=== PATIENT | female | born 1965 | race Caucasian/White ===

== ENCOUNTER → 2017-10-11 | Outpatient (CLI) | payer OTHER, MEDICAID ==
[~2017-10-11] MED LIST: ACTOS 30 MG TAB30 M1 PO; ADULT LOW DOSE81 MG PO; ALBUTEROL2.5 MG/31 INH; ASPIR 8181 MG PO; CELEXA40 MG PO; CLONAZEPAM 1 MG1 M1 PO; CRESTOR20 MG PO; DIFLUCAN150 M1 PO; DIOVAN HCT 1601 EAC1 PO; FLEXERIL PO; FUROSEMIDE 40 M40 M1 PO; HYDROCODON-ACE1 EAC5 PO; HYDROCODONE-AP1 EAC2 PO; LASIX 40 MG TAB40 MG GT; LEVOTHROID PO; METFORMIN 500500 MG PO; MOBIC15 MG PO; NORCO 10-325 T1 EACH PO; NORCO 7.5-3251 EACH PO; NORVASC10 MG PO; OMEPRAZOLE 20 M20 M1 PO; PHENERGAN 25 MG25 M1 PO; PIOGLITAZONE15 MG; PRILOSEC 20 MG20 MG PO; SYNTHROID300 MCG PO; VALSARTAN-HCTZ1 EAC2 PO; VENTOLIN HFA 1818 GM INH; ZOCOR40 MG PO; ZOVIRAX5 GM TOP
--- NOTE | 2017-10-17 14:16 | PAINCON ---
[address] [address] PAIN MANAGEMENT CONSULTATION Name: TAWNYETTA [facility] [id number] Admission: 10/11/17 Attend Phys: Heidi Harper MD Discharge: Date of : 63 Report #: [id number] THIS REPORT FOR: //name// CC: Heidi Amezquita DATE OF SERVICE: 10/11/2017 CHIEF COMPLAINT: Chronic pain. HISTORY OF PRESENT ILLNESS: The patient is a 57-year-old female who has been referred to the pain clinic because of chronic pain involving her feet bilaterally affected, back, hips, knees, and ankles. The patient has been having pain and found things problematic since 2006. She is experiencing a constant burning pain in her feet. States that Dr. Amezquita has been providing her medications until at this point. The patient states that her physician is no longer providing pain management. States that she has been taking Harmony 10 mg 1 p.o. every 4 hours for quite some time. Notes that her pain is worse with activity, cold temperatures, walking, sitting, standing, and lifting. Describes her pain in other areas, particularly in the feet as burning and cramping. She has been experiencing shooting, aching pain, gnawing pain, sharp, and stabbing pains. Notes that her pain improves when she lies down as well as with use of her medications. Pain is worse when she is active. Rates her pain as an 8/10 on a daily basis. ALLERGIES: No known drug allergies. CURRENT MEDICATIONS: Zovirax cream topical, albuterol 2.5 mg inhalation, ____ 2 puffs q. 4 hours, Norvasc 10 mg daily, aspirin 81 mg chewable, Celexa 40 mg, clonazepam 1 mg, Flexeril 10 mg for spasms, fluconazole 150 mg, Lasix 40 mg, hydrocodone 10/325 one p.o. 4-6 hours p.r.n. pain, levothyroxine 300 mcg, meloxicam 15 mg, omeprazole 20 mg, Actos 30 mg, Phenergan 25 mg, Crestor 20 mg, and valsartan/hydrochlorothiazide 160/25. PAST MEDICAL HISTORY: Diabetes, hypertension, asthma, colon problems, stomach problems, emotional problems, joint disease/arthritis, and thyroid disease. PAST SURGICAL HISTORY: Gallbladder surgery, cholecystectomy in 1993, hysterectomy complete in 1998, rectal surgery in 1994. SOCIAL HISTORY: She is disabled and on social security, has not worked since 2006. REVIEW OF SYSTEMS: Questionnaire, night fever/sweats, fatigue/weakness, headaches, wears glasses, shortness of breath with walking, swelling of feet and ankles, asthma, frequent diarrhea, painful bowel movements, abdominal pain, [place] [address] PAIN MANAGEMENT CONSULTATION Name: ETTA HECTOR Vangie Room: [facility]#: [id number] Admission: 10/11/17 Attend Phys: Heidi Harper MD Discharge: Date of : 63 Report #: [id number] frequent urination, awakens at night to urinate, incontinence, joint pain, joint stiffness, weakness of muscles, muscle pain with cramps, back pain, difficulty walking, frequent recurring headaches, lightheadedness, numbness and tingling sensation, nervousness, and depression. PAIN CLINIC ASSESSMENT: 1. History of osteoarthritis involving her hips, knees, and low back area for a number of years. 2. Height 5 feet 4 inches, weight 375 pounds, BMI is 64. 3. Blood pressure 155/75, heart rate 95, respiratory rate 16, room air saturation 93%, and temperature 98.3. 4. Pain score 8/10. 5. Fall. The patient has not fallen in the last 3 months. 6. Blood thinner. The patient is not on a blood thinning medication. 7. Hypertension. The patient is being treated for hypertension. 8. Opioid therapy greater than 6 weeks. The patient is on an opioid regimen. 9. Risk assessment tool. 10. Functional assessment tool. 11. Recreational drug use. The patient denies use of recreational drugs. 12. Tobacco: The patient denies use of tobacco. 13. Alcohol: The patient denies use of alcoholic beverages. PHYSICAL EXAMINATION: GENERAL: The patient is a well-developed white female, appears her stated age. She is alert and oriented x 3. Affect is appropriate. Speech is fluent. HEENT: Normocephalic, atraumatic. Extraocular eye muscles intact. Sclerae nonicteric. Hearing is within normal limits. Mucous membranes are moist. NECK: Without adenopathy or JVD. Good range of motion. CHEST: Clear to auscultation, but difficult to assess secondary to the patient's body habitus. ABDOMEN: Protuberant. EXTREMITIES: Upper extremity muscle strength is judged to be 5/5 for the major muscle groups, +1 for the biceps bilaterally. The patient complains of low back pain, hip pain, knee pain with signs of peripheral neuropathy in her feet. IMPRESSION: 1. Chronic back pain, hip, knee, and ankle pain as well as pain in the feet. 2. Diabetes with neuropathy. 3. Hypertension. 4. Asthma. 5. Colon problems. 6. Stomach problems. 7. Emotional problems. 8. Joint disease/arthritis. 9. [place] [address] PAIN MANAGEMENT CONSULTATION Name: ETTA HECTOR Vangie Room: [facility]#: [id number] Admission: 10/11/17 Attend Phys: Heidi Harper MD Discharge: Date of : 63 Report #: [id number] RECOMMENDATIONS: We discussed treatment options with the patient. We discussed the problems with opioid medications. We went over the CDC's new rules for opioid use. We explained to the patient the limitations of opioid use. Possible complications which could include dependence as well as lessen effects as a result of tolerance. We will provide the patient with 10 mg 1 p.o. total 5 tablets per day. We explained to the patient, she should get her medications from only one source. She states that she would follow the rules. A script for hydrocodone 10 mg 1 p.o. q. 4-6h, total 150 tablets have been dispensed. The patient will call us if she has any problems with her medications. We would like to thank you for letting us participate in her care. We hope she continues to improve. <ELECTRONICALLY SIGNED> By: Heidi Harper MD 10/17/17 1416 [id number]. Oswald Harper MD /nt
== END ==
LOC: M.PC 03:18
DX: M54.5 Low back pain (principal); G89.29 Other chronic pain; E11.40 Type 2 diabetes mellitus with diabetic neuropathy, unspecified; I10 Essential (primary) hypertension; J45.909 Unspecified asthma, uncomplicated; E07.9 Disorder of thyroid, unspecified; F98.9 Unspecified behavioral and emotional disorders with onset usually occurring in childhood and adolescence

== ENCOUNTER → 2017-11-08 | Outpatient (CLI) | payer OTHER, MEDICAID ==
--- NOTE | 2017-11-14 16:41 | PAINCON ---
[address] [address] PAIN MANAGEMENT CONSULTATION Name: ETTA HECTOR [facility] [id number] Admission: 11/08/17 Attend Phys: Heidi Harper MD Discharge: Date of : 63 Report #: [id number] THIS REPORT FOR: //name// CC: Heidi Amezquita MD DATE OF SERVICE: 11/08/2017 PRIMARY CARE PHYSICIAN: Jt Amezquita MD FOLLOWUP COMPLAINT: Here for medication renewal. FOLLOWUP HISTORY: The patient is a 52-year-old female who has been followed in the pain clinic because of chronic pain involving her feet. She has pain in her back, hips, knees and ankles. The patient has been having pain and treated since 2006. Notes that her pain continues to be problematic. Has burning in her feet. She has seen Dr. Amezquita who had been providing her medications. She has been referred to the pain clinic. She was given her medications last month. She returns today indicating that the medications are working reasonably well. She has had no complications. She has been taking the medication as prescribed. Feels that overall things are going reasonably well and that she is at baseline. Rates her pain as an 8/10, oftentimes 7/10. Does have some arthritic changes secondary to osteoarthritis involving her knees. ALLERGIES: No known drug allergies. CURRENT MEDICATIONS: Zovirax cream topical, albuterol 2.5 mg inhalation 2 puffs q.4 hours, Norvasc 10 mg daily, aspirin 81 mg, Celexa 40 mg, clonidine 1 mg, Flexeril 10 mg for spasms, fluconazole 150 mg, Lasix 40 mg, hydrocodone 10/325 one p.o. 4-6 hours p.r.n. pain, levothyroxine 300 mcg, meloxicam 15 mg, omeprazole 20 mg, Actos 30 mg, Phenergan 25 mg, Crestor 20 mg, valsartan/hydrochlorothiazide 160/25. PAIN CLINIC ASSESSMENT: 1. History of osteoarthritis. The patient has osteoarthritic changes in her knees as well as in her hips per her report. 2. Height 5 feet 4 inches, weight 373 pounds, BMI is 64. 3. Vitals: Blood pressure 149/82, heart rate 79, respiratory rate 16, room air saturation 93%, temperature 98.1. 4. Pain score 8/10. 5. Fall risk. The patient has not fallen in the last 3 months. She does walk with a cane. 6. Blood thinner. The patient is on a blood thinning medication. 7. Hypertension. The patient is being treated for hypertension. 8. Opioid medications greater than 6 weeks[place] [address] PAIN MANAGEMENT CONSULTATION Name: ETTA HECTOR Room: [facility]#: [id number] Admission: 11/08/17 Attend Phys: Heidi Harper MD Discharge: Date of : 63 Report #: [id number] medications from one source, the pain clinic. 9. Risk assessment tool. 10. Functional assessment tool. 11. Recreational drug use: The patient denies use of recreational drugs. 12. Tobacco: The patient denies use of tobacco. 13. Alcohol: The patient denies use of alcoholic beverages. PHYSICAL EXAMINATION: GENERAL: The patient is a well-developed, well-nourished, white female. Appears her stated age. She is alert and oriented x 3. Affect is appropriate. Speech is fluent. She is morbidly obese. HEENT: Normocephalic, atraumatic. Extraocular eye muscles intact. Sclerae nonicteric. Hearing is within normal limits. Mucous membranes are moist. NECK: Without adenopathy, JVD. Good range of motion. CHEST: Clear to auscultation, difficult to assess secondary to the patient's body habitus. ABDOMEN: Protuberant. MUSCULOSKELETAL: Upper extremity muscle strength is judged to be 5/5 for the major muscle groups with symmetry. The patient without significant kyphosis, scoliosis or lordosis. She does complain of pain in the low back area as well as in her hips and knees. The patient complains of peripheral neuropathy-type symptoms, burning dysesthesias in her feet. IMPRESSION: 1. Chronic pain involving the back, hips, knees, ankles as well as down the feet. 2. Diabetes with neuropathy. 3. Hypertension. 4. Asthma. 5. Colon problems. 6. Stomach problems. 7. Emotional problems. 8. Joint disease/arthritis. 9. Thyroid disease. RECOMMENDATIONS: We discussed treatment options with the patient. She feels that her medications are efficacious. She feels that with these medications, she is able to be more productive. She has taken the medication as prescribed. She is aware that opioid medications can lead to addiction. Notes that these medications over time can become less effective secondary to the patient developing tolerance. She would like to have her medications renewed. A script [address] [address] PAIN MANAGEMENT CONSULTATION Name: ETTA HECTOR Room: [facility]#: [id number] Admission: 11/08/17 Attend Phys: Heidi Harper MD Discharge: Date of : 63 Report #: [id number] for her medications have been rewritten. Hydrocodone 150 tablets have been provided to the patient. <ELECTRONICALLY SIGNED> By: Heidi Harper MD 11/14/17 1641 [id number] [id number] Harper MD /[facility]
== END ==
LOC: M.PC 03:21
DX: M54.5 Low back pain (principal); M25.552 Pain in left hip; M25.551 Pain in right hip; M25.561 Pain in right knee; M25.562 Pain in left knee; M25.572 Pain in left ankle and joints of left foot; M25.571 Pain in right ankle and joints of right foot; E11.40 Type 2 diabetes mellitus with diabetic neuropathy, unspecified; I10 Essential (primary) hypertension; J45.909 Unspecified asthma, uncomplicated; M19.90 Unspecified osteoarthritis, unspecified site; E07.9 Disorder of thyroid, unspecified; Z79.899 Other long term (current) drug therapy

== ENCOUNTER → 2017-12-06 | Outpatient (CLI) | payer OTHER, MEDICAID ==
--- NOTE | 2017-12-31 10:00 | PAINCON ---
[address] [address] PAIN MANAGEMENT CONSULTATION Name: TAWNYETTA Room: [facility] Karri#: [id number] Admission: 12/06/17 Attend Phys: Heidi Harper MD Discharge: Date of : 63 Report #: [id number] THIS REPORT FOR: //name// CC: Heidi Amezquita DATE OF SERVICE: 12/06/2017 CHIEF COMPLAINT: "Pain all over." FOLLOWUP HISTORY: The patient is a 52-year-old female who has been seen in the Pain Clinic because of chronic pain. She has pain involving her back, feet, ankles, hips. She notes that the pain is worse with activities of daily living. She notes that things such as walking, sitting, standing, climbing stairs can be problematic. She feels that her medications are helpful. She has had no complication from the meloxicam medication. She does not have any problems with GI complaints. The patient finds that the hydrocodone medication 10 mg can be helpful. She also finds that the muscle relaxant medications are helpful. As you recall, she has had pain and discomfort, which has been emanating for quite some time. She has had the problem since 2006. The patient states that she keeps her medications in a guarded area. She is aware of the possible problems with opioid medications. She has seen this on the news and in the media. She is aware that use of opioid medications can be addictive. They can be less effective over a period of time secondary to tolerance. She continues to have pain and discomfort, which is quite problematic involving her knees. ALLERGIES: No known drug allergies. CURRENT MEDICATIONS: Zovirax cream topical, albuterol 2.5 mg two puffs q. four hours, Norvasc 10 mg, aspirin 81 mg, Celexa 40 mg, clonidine 1 mg, Flexeril 10 mg for spasms, fluconazole 150 mg, Lasix 40 mg, hydrocodone 10/325s q. 4-6 hours p.r.n., levothyroxine 300 mcg, meloxicam 15 mg, omeprazole 20 mg, Actos 30 mg, Phenergan 25 mg, Crestor 20 mg, valsartan/hydrochlorothiazide 160/25. PAIN CLINIC ASSESSMENT/PQRS: 1. History of osteoarthritis: The patient has arthritic changes in her knees as well as in her hips per her report. 2. Height 5 feet 4 inches, weight 371 pounds, BMI is 63. 3. Vital signs: Blood pressure 146/82, heart rate 92, respiratory rate 16, room air saturation 92%, temperature 98.2. 4. Pain score: 8/10. 5. Fall risk: The patient has not fallen in the last 3 months. She does ambulate with use of her cane. 6. Blood thinner: The patient is not on a blood thinning medication. 7. Hypertension: The patient is being treated for hypertension. 8. Opioid therapy greater than 6 weeks: The patient [place] [address] PAIN MANAGEMENT CONSULTATION Name: ETTA HECTOR Room: [facility]#: [id number] Admission: 12/06/17 Attend Phys: Heidi Harper MD Discharge: Date of : 63 Report #: [id number] from the Pain Clinic, from 1 source. 9. Risk assessment tool. 10. Functional assessment tool. 11. Tobacco: The patient denies use of tobacco. 12. Alcohol: The patient denies use of alcoholic beverages. PHYSICAL EXAMINATION: GENERAL: The patient is a well-developed, well-nourished white female. She is morbidly obese. Her affect is appropriate. Speech is fluent. HEENT: Normocephalic, atraumatic. Extraocular eye muscles are intact. Sclerae are nonicteric. Mucous membranes are moist. Hearing is within normal limits. NECK: Without adenopathy or JVD. Good range of motion. CHEST: Clear to auscultation, without rhonchi or rales. Somewhat difficult to hear the patient's lungs given her body habitus. ABDOMEN: Protuberant, nonpainful. MUSCULOSKELETAL: Upper extremity muscle strength is judged to be 5/5 for the major muscle groups. The patient is without significant kyphosis, scoliosis, or lordosis. She does complain of pain in low back area. She has pain in her hips as well as her knees. She also complains of peripheral neuropathy type pains. She has some burning in her feet. IMPRESSION: 1. Chronic back pain, hip pain, knee pain, ankle pain down to the feet. 2. Diabetes with peripheral neuropathy symptomatology in her feet. 3. Hypertension. 4. Asthma. 5. Colon problem. 6. Stomach problem. 7. Emotional problem. 8. Joint disease. 9. Arthritis. 10. Chronic pain treatment with complex medical management. RECOMMENDATIONS: We discussed treatment options with the patient. At this juncture, we will continue with her current medical management. She states that she is taking her medication as prescribed. She does not have any problems with the medication. She feels that they enable her to engage in activities of daily living; she would not be able to without their use. She has had no complications with her thinking. She is thinking clearly. She has been given a script for hydrocodone 150 mg one p.o. q. 4-6 hours for pain. She will follow [place] [address] PAIN MANAGEMENT CONSULTATION Name: ETTA HECTOR Room: [facility]#: [id number] Admission: 12/06/17 Attend Phys: Heidi Harper MD Discharge: Date of : 63 Report #: [id number] We would like to thank you for letting us participate in her care. We hope she continues to improve. <ELECTRONICALLY SIGNED> By: Heidi Harper MD 12/31/17 1000 [id number]. Oswald Harper MD /nt
== END ==
LOC: M.PC 01:45
DX: M54.5 Low back pain (principal); M25.559 Pain in unspecified hip; M25.569 Pain in unspecified knee; M25.579 Pain in unspecified ankle and joints of unspecified foot; I10 Essential (primary) hypertension; E11.42 Type 2 diabetes mellitus with diabetic polyneuropathy; M19.90 Unspecified osteoarthritis, unspecified site; G89.29 Other chronic pain; J45.909 Unspecified asthma, uncomplicated; M25.9 Joint disorder, unspecified; Z79.899 Other long term (current) drug therapy

== ENCOUNTER → 2018-01-03 | Outpatient (CLI) | payer OTHER, MEDICAID ==
--- NOTE | 2018-01-30 16:08 | PAINCON ---
[address] [address] PAIN MANAGEMENT CONSULTATION Name: TAWNYETTA Vangie [facility] [id number] Admission: 01/03/18 Attend Phys: Heidi Harper MD Discharge: Date of : 63 Report #: [id number] THIS REPORT FOR: //name// CC: Heidi Amezquita MD DATE OF SERVICE: 01/03/2018 CHIEF COMPLAINT: Pain back, feet, hips, ankles. The patient states she has osteoarthritis. FOLLOWUP HISTORY: The patient is a 52-year-old female who has been followed in the pain clinic because of multiple areas of pain and discomfort. Has pain involving her back, feet, hips and ankles. She finds that these areas are quite problematic with activities of daily living. She feels that her current medications of hydrocodone have been efficacious. She is able to do more and have less discomfort. She feels that the generalized pain is improved with use of her current medications. She has taken the medication as prescribed. Does not have any problems with her stomach, given the use of nonsteroidal anti-inflammatory. Feels that the Flexeril medication is helpful as well to help with muscle spasms. She has had pain, which has been quite problematic since 2006. She is aware of the possible complications with hydrocodone/narcotic medications. She has seen in the news the possibility of dependence as well as aware that long-term use can cause some decreased effectiveness secondary to tolerance. ALLERGIES: No known drug allergies. MEDICATIONS: Zovirax cream topical, albuterol 2.5 mg 2 puffs q. 4 hours, Norvasc 10 mg, aspirin 81 mg, Celexa 40 mg, clonidine 1 mg, Flexeril 10 mg for spasms, fluconazole 150 mg, Lasix 40 mg, hydrocodone 10/325 q.4-6 hours p.r.n., levothyroxine 300 mcg, meloxicam 15 mg, omeprazole 20 mg, Actos 30 mg, Phenergan 25 mg, Crestor 20 mg, valsartan/hydrochlorothiazide 160/25 mg. PAIN CLINIC ASSESSMENT/PQRS: 1. The patient does have some arthritic change in her ankle and states that she has osteoarthritic changes in a number of joints. 2. The patient has not been treated for rheumatoid arthritis. 3. Height 5 feet 4 inches, weight 374 pounds, BMI is 64. 4. Vital Signs: Blood pressure is 142/83, heart rate 86, respiratory rate 16, room air saturation is 92, temperature 98. 5. Pain. Pain score 7/10. 6. Fall risk. The patient has not fallen in the last 3 months. 7. The patient continues to ambulate with cane. 8. Blood thinner. The patient is not [place] [address] PAIN MANAGEMENT CONSULTATION Name: ETTA HECTOR Room: [facility]#: [id number] Admission: 01/03/18 Attend Phys: Heidi Harper MD Discharge: Date of : 63 Report #: [id number] 9. Hypertension. The patient has been treated for hypertension. 10. Opiate therapy greater than 6 weeks. The patient continues to receive medication from [facility]. 11. Risk assessment tool. 12. Functional assessment tool. 13. Recreational drug use. The patient denies. 14. Tobacco: The patient denies. 15. Alcohol: The patient denies use of alcoholic beverages. PHYSICAL EXAMINATION: GENERAL: The patient is a well-developed, well-nourished white female. She is morbidly obese. Her affect is appropriate. Speech is fluent. HEENT: Normocephalic, atraumatic. Extraocular eye muscles intact. Sclerae nonicteric. Mucous membranes are moist. Hearing is within normal limits. NECK: Without adenopathy or JVD. CHEST: Clear to auscultation without rales or rhonchi. The patient has a body habitus, which makes it difficult to hear. ABDOMEN: Protuberant, nonpainful bowel sounds present. MUSCULOSKELETAL: Without significant kyphoscoliosis or lordosis. Upper extremity muscle strength is judged to be 5/5 for the major muscle groups. The patient has pain in her hips as well as in her knees. The patient walks with use of a cane. Has an antalgic gait. Complains of some burning in her feet. ASSESSMENT: 1. Chronic back pain, hip pain, knee pain, ankle pain down into the foot and into her feet. 2. Diabetes with peripheral neuropathy. 3. Hypertension. 4. Asthma. 5. Colon problems. 6. Stomach problems. 7. Emotional problems. 8. Degenerative joint disease. 9. Arthritis. 10. Chronic pain with complex medical management. RECOMMENDATIONS: We discussed treatment option with the patient. Risks and benefits of her medications were again reviewed. The patient is taking the medications as prescribed. Has no problems with the medications. Feels that the medication enable her to engage in activities of daily living, she would not be able to do without their use. Notes pain with activity such as walking, standing, sitting, climbing stairs. She would like to have her medications renewed. Feels that the hydrocodone is beneficial, has not caused any problem with sleeping too much, not cause any problems with mentation. She is thinking clearly. A script for her medications has been renewed. She will follow up in [address] [place] [address] PAIN MANAGEMENT CONSULTATION Name: ETTA HECTOR Room: [facility]#: [id number] Admission: 01/03/18 Attend Phys: Heidi Harper MD Discharge: Date of : 63 Report #: [id number] the near future. We would like to thank you for letting us participate in her care. We hope she continues to improve. <ELECTRONICALLY SIGNED> By: Heidi Harper MD 01/30/18 1608 [id number]. Oswald Harper MD /PMT
== END ==
LOC: M.PC 05:29
DX: M54.5 Low back pain (principal); M25.551 Pain in right hip; M25.561 Pain in right knee; M25.572 Pain in left ankle and joints of left foot; M25.552 Pain in left hip; M25.562 Pain in left knee; M25.571 Pain in right ankle and joints of right foot; G89.29 Other chronic pain; E11.42 Type 2 diabetes mellitus with diabetic polyneuropathy; I10 Essential (primary) hypertension; M19.90 Unspecified osteoarthritis, unspecified site; J45.909 Unspecified asthma, uncomplicated; F98.9 Unspecified behavioral and emotional disorders with onset usually occurring in childhood and adolescence; R10.9 Unspecified abdominal pain; Z79.899 Other long term (current) drug therapy

== ENCOUNTER → 2018-01-31 | Outpatient (CLI) | payer OTHER, MEDICAID ==
--- NOTE | ~2018-01-31 | PAINCON ---
[address] [address] PAIN MANAGEMENT CONSULTATION Name: TAWNYETTA Vangie [id number] Admission: 01/31/18 Attend Phys: Heidi Harper MD Discharge: Date of : 63 Report #: [id number] THIS REPORT FOR: //name// CC: Heidi Amezquita DATE OF SERVICE: 01/31/2018 CHIEF COMPLAINT: Here for medication renewal. HISTORY: The patient is a 52-year-old female who has been followed in the Pain Clinic. As you know, she has pain and discomfort in a number of areas. These areas include her back, feet, hip and ankles. She finds that hydrocodone has been helpful. She finds that she is less active with all her medications. Feels that these medications enable her to engage in activities of daily living, she would not be able to without. Does have problems with her stomach and ____ watch the use of nonsteroidal anti-inflammatory medications. Feels that the Flexeril medication is helpful and decrease her muscle spasms. She has been treated for chronic pain since about 2006. She is trying to lose weight. Rates her pain as a 9/10. ALLERGIES: No known drug allergies. MEDICATIONS: Zovirax cream topical, albuterol 2.5 mg 2 puffs q. 4 hours, Norvasc 10 mg, aspirin 81 mg, Celexa 40 mg, clonidine 1 mg, Flexeril 10 mg for spasms, fluconazole 150 mg, Lasix 40 mg, hydrocodone 10/325 one p.o. 4-6 hours p.r.n. pain, levothyroxine 300 mcg, meloxicam 15 mg, omeprazole 20 mg, Actos 30 mg, Phenergan 25 mg, Crestor 20 mg, valsartan/hydrochlorothiazide 160/25 mg. PAIN CLINIC ASSESSMENT/PQRS: 1. The patient does have some arthritic changes in her ankles. She states that she has had osteoarthritic changes in number of her joints. 2. The patient is not being treated for rheumatoid arthritis. 3. Height 5 feet 4 inches, weight 374 pounds, BMI is 64.3. 4. Vital signs: Blood pressure 146/83, heart rate 79, respiratory rate 18, room air saturation 91%, temperature 98.5. 5. Pain intensity score 9/10. 6. Fall risk. The patient has not fallen in the last 3 months. 7. The patient does ambulate with a cane. 8. Blood thinner. The patient is not on a blood thinning medication. 9. Hypertension. The patient is being treated for hypertension. 10. Opioid therapy greater than 6 weeks. The patient continues to receive her medications [facility]. 11. Risk assessment tool. 12. Functional assessment tool. 13. Recreational drug use: [place] [address] PAIN MANAGEMENT CONSULTATION Name: TAWNYETTA Room: [facility]#: [id number] Admission: 01/31/18 Attend Phys: Heidi Harper MD Discharge: Date of : 63 Report #: [id number] 14. Tobacco: The patient denies use of tobacco. 15. Alcohol: The patient denies use of alcoholic beverages. PHYSICAL EXAMINATION: GENERAL: The patient is a well-developed, well-nourished white female. Appears her stated age. She is morbidly obese. Her affect is appropriate. Speech is fluent. HEENT: Normocephalic, atraumatic. Extraocular eye muscles intact. Sclerae nonicteric. Mucous membranes are moist. Hearing is within normal limits. NECK: Without adenopathy or JVD. Clear to auscultation without rales or rhonchi. The patient has a body habitus, which makes it difficult to hear breath sounds. ABDOMEN: Protuberant. Bowel sounds present. MUSCULOSKELETAL: Without significant scoliosis, kyphosis or lordosis. Upper extremity muscle strength is judged to be 5/5 with major muscle groups. The patient has pain and discomfort in her hips as well as in her knees. She goes from a sitting position to a standing position with the use of her hands. Walks with a cane, has antalgic gait that she rocks from one side to the next. Has somewhat of complains of a burning sensation in her feet. ASSESSMENT: 1. Chronic back pain, hip pain, knee pain, ankle pain with pain radiating down into the feet. 2. Diabetes with peripheral neuropathy. 3. Hypertension. 4. Asthma. 5. Colon problems. 6. Stomach problems. 7. Emotional problems. 8. Degenerative joint disease. 9. Arthritis. 10. Chronic pain with complex medical management. RECOMMENDATIONS: We discussed treatment options with the patient. At this juncture, we will continue with her current medications. Feels that the medications are helpful. She is aware that opioid medications can lose their effectiveness over time secondary to tolerance. She is aware that opioid use can also cause dependency. The patient overall feels that things are going reasonably well. She would like to continue with her medications. They enable her to stay active during the day. A script for hydrocodone 10/325 one p.o. 4-6 hours has been written. The patient will also follow up in the future as needed. [address] [address] PAIN MANAGEMENT CONSULTATION Name: ETTA HECTOR Room: [facility] Zeng#: [id number] Admission: 01/31/18 Attend Phys: Heidi Harper MD Discharge: Date of : 63 Report #: [id number] We would like to thank you for letting us participate in her care. We hope she continues to improve. By: [id number]. Oswald Harper MD /nt
== END ==
LOC: M.PC 05:38
DX: M54.5 Low back pain (principal); G89.29 Other chronic pain; E11.42 Type 2 diabetes mellitus with diabetic polyneuropathy; I10 Essential (primary) hypertension; J45.909 Unspecified asthma, uncomplicated; M19.90 Unspecified osteoarthritis, unspecified site; Z79.899 Other long term (current) drug therapy; F98.9 Unspecified behavioral and emotional disorders with onset usually occurring in childhood and adolescence; M25.559 Pain in unspecified hip; M25.569 Pain in unspecified knee; M25.579 Pain in unspecified ankle and joints of unspecified foot

== ENCOUNTER → 2018-02-28 | Outpatient (CLI) | payer OTHER, MEDICAID ==
--- NOTE | ~2018-02-28 | PAINCON ---
[address] [address] PAIN MANAGEMENT CONSULTATION Name: ETTA HECTOR Vangie [facility] [id number] Admission: 02/28/18 Attend Phys: Heidi Harper MD Discharge: Date of : 63 Report #: [id number] THIS REPORT FOR: //name// CC: Heidi Amezquita MD DATE OF SERVICE: 02/28/2018 CHIEF COMPLAINT: The injections have been working really well. She has returned and like to have another injection. HISTORY: The patient is a 52-year-old female who has been followed in the Pain Clinic. She continues to have pain and discomfort in her hip joint on the left side. This has been problematic for years. It has gotten worse over a period of time. She has undergone left hip injections in the past and gleaned significant benefits from this. Continues to have some knee pain. Pain in her feet and ankles as well. These all limit her ability to engage in activities of daily living. Rates her pain as a 9/10. Feels that the hydrocodone is helpful as well. Overall, things are about 50% improved with her current medical management. She has had no complications from the injections. Still trying to lose weight, given the amount of pain that she is having. Weight loss is very difficult. ALLERGIES: No known drug allergies. MEDICATIONS: Zovirax cream topical, albuterol 2.5 mg 2 puffs q.4h., Norvasc 10 mg, aspirin 81 mg, Celexa 40 mg, clonidine 1 mg, Flexeril 10 mg for spasms, Fluconazole 150 mg, Lasix 40 mg of hydrocodone 10/325 one p.o. 4-6h. p.r.n., levothyroxine 300 mcg, meloxicam 15 mg, omeprazole 20 mg, Actos 30 mg, Phenergan 25 mg, Crestor 20 mg, valsartan/hydrochlorothiazide 160/25. PAIN CLINIC ASSESSMENT/PQRS: 1. The patient does have arthritic changes in her ankles. Also, has some arthritic changes in a number of other joints and complains of pain and discomfort in the left hip. 2. The patient is not being treated for rheumatoid arthritis. 3. Height 5 feet 4 inches, weight 374 pounds, BMI is 64. 4. Vital signs: Blood pressure 140/80, heart rate 97, respiratory rate 16, room air saturation 95%, and temperature is 98.2. 5. Pain intensity score was 9/10. 6. Fall risk. The patient has not fallen in the last 3 months. 7. Blood thinner. The patient is not on a blood thinning medication. She does use a cane to ambulate. 8. Hypertension. The patient is being treated for hypertension. 9. Opioids greater than 6 weeks. The [place] [address] PAIN MANAGEMENT CONSULTATION Name: ETTA HECTOR Vangie Room: [facility]#: [id number] Admission: 02/28/18 Attend Phys: Heidi Harper MD Discharge: Date of : 63 Report #: [id number] for the chronic pain in her hip. 10. Risk assessment tool, low for opioids. 11. Functional assessment tool. 12. Recreational drug use. The patient denies use of recreational drugs. 13. Tobacco: The patient denies use of tobacco. 14. Alcohol: The patient denies use of alcoholic beverages. PHYSICAL EXAMINATION: GENERAL: The patient is a well-developed, well-nourished white female. Appears her stated age. She is alert and oriented x 3. Her affect is appropriate. The patient is morbidly obese. Speech is fluent. HEENT: Normocephalic and atraumatic. Extraocular eye muscles intact. Sclerae nonicteric. Mucous membranes are moist. Hearing is within normal limits. NECK: Without adenopathy or JVD. LUNGS: Clear to auscultation without rhonchi. The patient's body habitus makes auscultation difficult. ABDOMEN: Protuberant. Bowel sounds present. MUSCULOSKELETAL: Without significant scoliosis, kyphosis, or lordosis. The patient has some pain and discomfort in the lower back area with pain in the knee as well as pain in her left hip. Goes from a sitting position to a standing position using her hands. Walks with use of a cane and has an antalgic gait. Walks from one side to the next as she ambulates. Complains of burning sensation in her feet. ASSESSMENT: 1. Chronic back pain/hip pain, knee pain with pain radiating down into the feet. 2. Diabetes with peripheral neuropathy. 3. Hypertension. 4. Asthma. 5. Colon problems. 6. Stomach problems. 7. Emotional problems. 8. Degenerative joint disease. 9. Arthritis. 10. Chronic pain with complex medical management usage. RECOMMENDATIONS: We discussed treatment options with the patient. We again discussed the possible complications of an injection into the hip joint. Possibility exists for infection, worsening of pain, no improvement in pain, bleeding and the patient elects to proceed. PROCEDURE NOTE: The patient was placed in the supine position. Her left groin area was sterilely prepped with a chlorhexidine solution and allowed to dry. We followed with another cleansing with chlorhexidine solution and allowed it to dry. Fluoroscopy using anterior, posterior as well as lateral imaging were used. Skin wheal was placed in the left hip area. A 0.5% [place] [address] PAIN MANAGEMENT CONSULTATION Name: ETTA HECTOR Room: [facility]#: [id number] Admission: 02/28/18 Attend Phys: Heidi Harper MD Discharge: Date of : 63 Report #: [id number] infiltrated. A 20-gauge Chiba needle was then advanced into the left hip area. Aspiration was negative. Contrast dye was injected. Appropriate movement of the contrast dye around the hip capsule was noted. A total of 40 mg triamcinolone and 5 mL of 0.5% bupivacaine was injected. The patient tolerated the procedure well. There were no complications. She remained in the Pain Clinic for an appropriate amount of time. She will follow up in the future as needed. We would like to thank you for letting us participate in her care. We hope she continues to improve. By: [id number]. Oswald Harper MD /nt
== END ==
LOC: M.PC 05:29
DX: M25.552 Pain in left hip (principal); G89.29 Other chronic pain; M54.5 Low back pain; M25.562 Pain in left knee; E11.42 Type 2 diabetes mellitus with diabetic polyneuropathy; I10 Essential (primary) hypertension; J45.909 Unspecified asthma, uncomplicated; M19.90 Unspecified osteoarthritis, unspecified site; Z79.899 Other long term (current) drug therapy; K59.9 Functional intestinal disorder, unspecified; F98.9 Unspecified behavioral and emotional disorders with onset usually occurring in childhood and adolescence; K92.9 Disease of digestive system, unspecified

== ENCOUNTER → 2018-03-28 | Outpatient (CLI) | payer OTHER, MEDICAID ==
[~2018-03-28] MED LIST changes: +COREG6.25 MG PO
--- NOTE | ~2018-03-28 | PAINCON ---
[address] [address] PAIN MANAGEMENT CONSULTATION Name: ETTA HECTOR Vangie [facility] [id number] Admission: 03/28/18 Attend Phys: Heidi Harper MD Discharge: Date of : 63 Report #: [id number] THIS REPORT FOR: //name// CC: Heidi Amezquita MD DATE OF SERVICE: 03/28/2018 CHIEF COMPLAINT: Here for medication renewal. My pain is about 9. FOLLOWUP HISTORY: The patient is a 52-year-old female who has been followed in the pain clinic. As you recall, she has some significant problems. She has joint pain involving her left side. She has had pain for a number of years. Notes pain has worsened over the period past year. Has pain in her left hip as well as in the low back and knee area. She has elevated blood pressures. She has been followed by her key attendant. They have changed her blood pressure medication and are making adjustments to it. She finds that use of her medications of hydrocodone are beneficial. She is able to engage in activities, she would not be able to without its use. Has some generalized pain involving most of her joints. The pain is worse secondary to the change in the temperature. It is about 28 degrees out today. ALLERGIES: No known drug allergies. CURRENT MEDICATIONS: [place] 10/325 mg one p.o. q. 4-6 hours, Zovirax topical cream, albuterol 2.5 mg 2 puffs q. 4 hours, Norvasc 10 mg, aspirin 81 mg, Celexa 40 mg, clonidine 1 mg, Flexeril 10 mg for spasms, fluconazole 150 mg, Lasix 40 mg, hydrocodone 10/325 mg one p.o. q. 4-6 hours p.r.n., levothyroxine 100 mcg, meloxicam 15 mg, omeprazole 20 mg, Actos 30 mg, Phenergan 25 mg, Crestor 20 mg, valsartan/hydrochlorothiazide 160/25 mg. PAIN CLINIC ASSESSMENT/PQRS: 1. The patient does have some arthritic changes in her ankles. Also, has some changes in her knees. She also complains of some other joint discomfort involving her left hip. 2. The patient is not being treated for rheumatoid arthritis. 3. Height 5 feet 4 inches, weight 373 pounds, BMI is 63. 4. Vital Signs: Blood pressure 179/71, heart rate 93, respiratory rate 18, room air saturation 93%, temperature 98.2. 5. Pain score 9.5/10. 6. Fall risk. The patient has not fallen in the last 3 months. 7. Blood thinner. The patient is not on a blood thinning medication. 8. Hypertension. The patient is being treated for hypertension and adjustments will be made by her key attendant. 9. Opioid therapy greater than 6 weeks. The [place] [address] PAIN MANAGEMENT CONSULTATION Name: ETTA HECTOR [facility] [id number] Admission: 03/28/18 Attend Phys: Heidi Harper MD Discharge: Date of : 63 Report #: [id number] [facility]. 10. Risk assessment tool, low for opioid use. 11. Functional assessment tool. 12. Recreational drug use. The patient denies use of recreational drugs. 13. Tobacco: The patient denies use of tobacco. 14. Alcohol: The patient denies use of alcoholic beverages. PHYSICAL EXAMINATION: GENERAL: The patient is a well-developed, obese white female. Appears her stated age. She is alert and oriented x 3. Her affect is appropriate. Speech is fluent. HEENT: Normocephalic, atraumatic. Extraocular eye muscle are appropriate. Speech is fluent. Hearing is within normal limits. NECK: Without adenopathy or JVD. LUNGS: Clear to auscultation, difficult to appreciate secondary to the patient's body habitus. ABDOMEN: Protuberant. Bowel sounds present. MUSCULOSKELETAL: Without scoliosis, kyphosis or lordosis. The patient has pain and discomfort in lower portion of her back. Complains of pain in her left hip. Complains of pain in her knee. Complains of pain in her hands. Notes increased pain and continues to walk with a cane with an antalgic gait. Carries a cane in her left hand. Complains of some burning sensation in her feet. ASSESSMENT: 1. Chronic pain/back hip, knee pain radiating down into her feet. 2. Diabetes with peripheral neuropathy. 3. Hypertension. 4. Asthma. 5. Chronic colon problems. 6. Stomach problems. 7. Emotional problems. 8. Degenerative joint disease. 9. Arthritis. 10. Chronic pain. Treated with complex medical management. RECOMMENDATIONS: We discussed treatment options with the patient. We will continue with her current medications. She feels that the medications are helpful. She is able to engage in more activities with less pain. Feels that these medications are helpful. They are not causing any problems. We have discussed the use of opioid medications. Possible complications of them or development of addiction as well as less effectiveness secondary to tolerance. The patient keeps her medications in a guarded area. She would like to have them renewed. A script for her medications of hydrocodone one p.o. q. 4 [place] [address] PAIN MANAGEMENT CONSULTATION Name: ETTA HECTOR [facility] [id number] Admission: 03/28/18 Attend Phys: Heidi Harper MD Discharge: Date of : 63 Report #: [id number] hours. Total 150 tablets have been dispensed. We would like to thank you for letting us participate in her care. We hope she continues to improve. By: [id number]. Oswald Harper MD /PMT
== END ==
LOC: M.PC 12:10
DX: G89.29 Other chronic pain (principal); M25.559 Pain in unspecified hip; M25.569 Pain in unspecified knee; E11.42 Type 2 diabetes mellitus with diabetic polyneuropathy; I10 Essential (primary) hypertension; J45.909 Unspecified asthma, uncomplicated; K59.9 Functional intestinal disorder, unspecified; M19.90 Unspecified osteoarthritis, unspecified site; Z79.899 Other long term (current) drug therapy

== ENCOUNTER → 2018-05-23 | Outpatient (CLI) | payer OTHER, MEDICAID ==
--- NOTE | ~2018-05-23 | PAINCON ---
[address] [address] PAIN MANAGEMENT CONSULTATION Name: ETTA HECTOR [id number] Admission: 05/23/18 Attend Phys: Heidi Harper MD Discharge: Date of : 63 Report #: [id number] THIS REPORT FOR: //name// CC: Heidi Amezquita MD DATE OF SERVICE: 05/23/2018 FOLLOWUP HISTORY: "Things are going pretty good. I am still having pain, but the medicines are helpful." The patient is a 52-year-old female who has been followed in the pain clinic because of chronic pain involving her left side. She has had pain for a number of years. Note that she has pain in her left hip as well as in the low back area. She feels that the [place] medication is beneficial. It provides her some relief. The weather has changed significantly. It has been in the single digits. This has exacerbated her pain. She rates her pain as a 9/10 today. Notes that sitting, standing can increased pain, medications as well as rest are beneficial. Feels that use of this medication of [place] enables her to engage in some activities, she would not be able to without its use. She would like to continue with her medications. Continues to keep her medications in a guarded area. ALLERGIES: No known drug allergies. CURRENT MEDICATIONS: [place] 10 mg/325 one p.o. 4-6 hours, Zovirax topical cream, albuterol 2.5 mg 2 puffs p.r.n. q.4 hours, Norvasc 10 mg, aspirin 81 mg, Celexa 40 mg, clonidine 1 mg, Flexeril 10 mg for spasms, fluconazole 150 mg, Lasix 40 mg, levothyroxine 100 mcg, meloxicam 50 mg, omeprazole 20 mg, Actos 30 mg, and Phenergan 25 mg, Crestor 20 mg, valsartan/hydrochlorothiazide 160/25 mg. PAIN CLINIC ASSESSMENT/PQRS: 1. The patient does have some arthritic changes in her ankles. Has some changes in her knees. She complains of joint pain in other areas involving her left hip. The patient is not being treated for rheumatoid arthritis. 2. Height 5 feet 4 inches, weight 367 pounds, BMI is 63. 3. VITAL SIGNS: Blood pressure 149/74, heart rate 85, respiratory rate 20, room air saturation 94%, temperature 98.3. 4. Pain intensity 9/10. 5. Fall history: The patient has not fallen in the last 3 months. 6. Blood thinner. The patient is not on a blood thinning medication. 7. Hypertension. The patient is being treated for hypertension and is followed by her pickling operator. 8. Opioid greater than 6 weeks. The patient receives her medications from [facility], the pain clinic. 9. Risk assessment too low for opioid use. 10. Functional [place] [address] PAIN MANAGEMENT CONSULTATION Name: ETTA HECTOR Room: [facility] Karri#: [id number] Admission: 05/23/18 Attend Phys: Heidi Harper MD Discharge: Date of : 63 Report #: [id number] 11. Recreational drug use. The patient denies use of recreational drugs. 12. Tobacco: The patient denies use of tobacco. 13. Alcohol: The patient denies use of alcoholic beverages. PHYSICAL EXAMINATION: GENERAL: The patient is a well-developed, well-nourished, obese white female, appears her stated age. She is alert and oriented x 3. Her affect is appropriate. Speech is fluent. HEENT: Normocephalic, atraumatic. Extraocular eye muscles intact. Sclerae nonicteric. Mucous membranes moist. NECK: Without adenopathy or JVD. LUNGS: Clear to auscultation, difficult to hear and appreciate secondary to the patient's body habitus. ABDOMEN: Protuberant. Bowel sounds present. MUSCULOSKELETAL: Without significant scoliosis, kyphosis, or lordosis. The patient walks and ambulates with use of a cane. Complains of pain in her left hip. She complains of knee pain as well. Has an antalgic gait. Complains of history of burning sensation in her feet. ASSESSMENT: 1. Chronic back pain/hip pain, knee pain radiating to her feet. 2. Diabetes with peripheral neuropathy. 3. Hypertension. 4. Asthma. 5. Chronic colon problems. 6. Stomach problems. 7. Emotional problems. 8. Degenerative joint disease. 9. Arthritis. 10. Chronic pain. The patient is being treated with complex medical management. RECOMMENDATIONS: We discussed treatment options with the patient. We explained that use of opioid medications can be helpful at times. It can be less effective over a period of time secondary to development of tolerance. The patient is also aware these medications can be problematic and cause addiction. She feels the medication is helpful. Enables her to engage in activities, she would not be able to. A script for her medications, hydrocodone p.o. q. 4 hours p.r.n. has been written. She will follow up in the future. We would like to thank you for letting us participate in her care. We hope she continues to improve. By: [id number] [id number]. Oswald Harper MD /STARR
== END ==
LOC: M.PC 04-25 11:00
DX: M54.5 Low back pain (principal); G89.29 Other chronic pain; E11.42 Type 2 diabetes mellitus with diabetic polyneuropathy; J45.909 Unspecified asthma, uncomplicated; M19.90 Unspecified osteoarthritis, unspecified site; K55.9 Vascular disorder of intestine, unspecified; F98.9 Unspecified behavioral and emotional disorders with onset usually occurring in childhood and adolescence; K92.9 Disease of digestive system, unspecified; Z79.899 Other long term (current) drug therapy

== ENCOUNTER → 2018-07-18 | Outpatient (CLI) | payer OTHER, MEDICAID ==
--- NOTE | ~2018-07-18 | PAINCON ---
[address] [address] PAIN MANAGEMENT CONSULTATION Name: TAWNYETTA Vangie [facility] [id number] Admission: 07/18/18 Attend Phys: Heidi Harper MD Discharge: Date of : 63 Report #: [id number] THIS REPORT FOR: //name// CC: Heidi Amezquita DATE OF SERVICE: 07/18/2018 CHIEF COMPLAINT: Back and leg pain. I have arthritis on pretty much all my joints. HISTORY: The patient is a 53-year-old female who has been seen in the Pain Clinic because of chronic pain. She has pain and discomfort in the lower back area, which has been problematic over the last 4 years. Also, has pain in her hips and low back area. She rates her pain as a 9/10 today. Feels that the weather has worsened. It has been raining outside. It was cold a couple of days ago and now it is warmer. Change in the barometric pressure have been affecting her level of comfort. She has returned today with a desire to have her medications renewed. She has been given a script for physical therapy. She has not taken physical therapy at this juncture. That option still remains available. ALLERGIES: No known drug allergies. CURRENT MEDICATIONS: [place] 10 mg one p.o. q 4-6 hours p.r.n., Zovirax topical cream, albuterol 2.5 mg 2 puffs p.r.n., Norvasc 10 mg, aspirin 81 mg, Celexa 40 mg, clonidine 1 mg, Flexeril 10 mg for spasms, fluconazole 150 mg, Lasix 40 mg, levothyroxine 100 mcg, meloxicam 15 mg, omeprazole 20 mg, Actos 30 mg, Phenergan 25 mg, Crestor 20 mg, valsartan-hydrochlorothiazide 160/25. PAIN CLINIC ASSESSMENT/PQRS: 1. The patient does have arthritic changes in her ankles. She has arthritic changes in her knees. Complains of pain and discomfort in her joints and hips. She has not been treated for rheumatoid arthritis. 2. Height 5 feet 4 inches, weight 369 pounds, BMI is 63.6. 3. Vital Signs: Blood pressure 137/79, heart rate 70, respiratory rate 16, room air saturation 92%, temperature 98.0. Pain intensity 9/10. 4. Fall history: The patient has not fallen in the last 3 months. 5. Blood thinner. The patient is not on a blood thinning medication. 6. Hypertension. The patient is being treated for hypertension. 7. Opioids greater than 6 weeks. The patient receives her medication from [facility], the [facility] Clinic. 8. Risk assessment tool, low for opioid use. 9. Functional assessment tool. 10. Recreational drug use. The patient denies use of recreational drugs. 11. Tobacco: The patient [place] [address] PAIN MANAGEMENT CONSULTATION Name: TAWNYETTA Room: [facility]#: [id number] Admission: 07/18/18 Attend Phys: Heidi Harper MD Discharge: Date of : 63 Report #: [id number] 12. Alcohol: The patient denies use of alcoholic beverages. PHYSICAL EXAMINATION: GENERAL: The patient is a well-developed, well-nourished white female. She is obese. Her affect is appropriate. Speech is fluent. HEENT: Normocephalic, atraumatic. Extraocular eye muscles are intact. Sclerae nonicteric. Mucous membranes are moist. NECK: Without adenopathy or JVD. LUNGS: Clear to auscultation, difficult to appreciate secondary to the patient's body habitus. ABDOMEN: Protuberant. Bowel sounds are present. The patient has an abdominal pannus. The patient goes from a sitting to a standing position using her hands to raise from the chair. Walks with use of a cane. Has complaints of some burning discomfort in her feet. ASSESSMENT: 1. Chronic back pain/hip pain, knee pain with pain radiating down to the feet. 2. Diabetes with peripheral neuropathy. 3. Hypertension. 4. Asthma. 5. Chronic colon problems. 6. Stomach problems. 7. Emotional problems. 8. Degenerative joint disease. 9. Arthritis. 10. Chronic pain treated with complex medical management. RECOMMENDATIONS: We discussed treatment options with the patient. At this juncture, we will continue with her medications. Risk and benefits of opioid medications assisted have been discussed. Opioids can become less effective over a period of time because of tolerance. Also, explained to the patient dependence on opioid medications or possible development of an addiction. The patient feels that these medications are helpful. They enable her to be much more active than she would without them. States that she is taking her medications as prescribed. Keeps them in a guarded area. She will follow up in the future as needed. She will call us if she has any concerns. We would like to thank you for letting us participate in her care. We hope she continues to improve. By: [id number]. Oswald Harper MD /nt
== END ==
LOC: M.PC 04:47
DX: M19.90 Unspecified osteoarthritis, unspecified site (principal); G89.29 Other chronic pain; M54.5 Low back pain; M25.551 Pain in right hip; M25.552 Pain in left hip; E11.42 Type 2 diabetes mellitus with diabetic polyneuropathy; I10 Essential (primary) hypertension; J45.909 Unspecified asthma, uncomplicated; K59.9 Functional intestinal disorder, unspecified; K92.9 Disease of digestive system, unspecified; F98.9 Unspecified behavioral and emotional disorders with onset usually occurring in childhood and adolescence; Z79.899 Other long term (current) drug therapy

== ENCOUNTER → 2018-08-15 | Outpatient (CLI) | payer OTHER, MEDICAID ==
--- NOTE | ~2018-08-15 | PAINCON ---
[address] [address] PAIN MANAGEMENT CONSULTATION Name: TAWNYETTA [id number] Admission: 08/15/18 Attend Phys: Heidi Harper MD Discharge: Date of : 63 Report #: [id number] THIS REPORT FOR: //name// CC: Heidi Amezquita DATE OF SERVICE: 08/15/2018 CHIEF COMPLAINT: Continued knee pain. HISTORY: The patient is a 53-year-old female who has been referred to the pain clinic for evaluation and treatment. The patient has chronic pain, which has been ongoing for years. She has pain and discomfort in both knees. States that she is not a surgical candidate at this juncture per her orthopedic surgeons. She has some overall pain as well. She feels that she is not able to go to physical therapy. Rates her pain as a 7/10. The patient had been given a script to go to physical therapy. We continue to make that option available. She describes increased pain with changes in temperature, walking, sitting, standing, going up and down stairs, lifting and bending and activities of daily living. Notes that her pain is improved with use of heat, rest, and with her current medication regimen. ALLERGIES: No known drug allergies. CURRENT MEDICATIONS: [place] 10 mg one p.o. 4-6 hours p.r.n., Zovirax topical cream, albuterol 2.5 mg two puffs p.r.n., Norvasc 10 mg, aspirin 81 mg, Celexa 40 mg, clonidine 1 mg, Flexeril 10 mg for spasms, fluconazole 150 mg, Lasix 40 mg, levothyroxine 100 mcg, meloxicam 15 mg, omeprazole 20 mg, Actos 30 mg, Phenergan 25 mg, Crestor 20 mg, valsartan/hydrochlorothiazide 160/25. PAIN CLINIC ASSESSMENT AND PQRS: 1. The patient has arthritic changes involving her ankles. She has also arthritic changes with knee joints and hip joints. 2. The patient is not being treated for rheumatoid arthritis. 3. Height 5 feet 4 inches, weight 368 pounds, BMI is 66.3. 4. Blood pressure 142/77, heart rate 79, respiratory rate 16, room air saturation 92%, and temperature 98.1. 5. Pain intensity score 7/10. 6. Fall history: The patient has not fallen in the last 3 months. 7. Blood thinner. The patient is not on a blood thinning medication. 8. Hypertension. The patient is being treated for hypertension. 9. Opioids greater than 6 weeks. The patient receives her medications from one source, the pain clinic. 10. Risk assessment tool, low for opioid use. 11. Functional assessment tool. 12. Recreational drug use. The patient [place] [address] PAIN MANAGEMENT CONSULTATION Name: ETTA HECTOR Vangie Room: [facility]#: [id number] Admission: 08/15/18 Attend Phys: Heidi Harper MD Discharge: Date of : 63 Report #: [id number] 13. Tobacco: The patient denies use of tobacco. 14. Alcohol: The patient denies use of alcoholic beverages. PHYSICAL EXAMINATION: GENERAL: The patient is a well-developed, well-nourished white female who is morbidly obese. She is alert and oriented x 3. Affect is appropriate. Speech is fluent. HEENT: Normocephalic, atraumatic. Extraocular eye muscles intact. Sclerae nonicteric. Mucous membranes are moist. NECK: Without adenopathy or JVD. HEART: Regular rate, distant. LUNGS: Clear to auscultation ____. ABDOMEN: Protuberant. Bowel sounds present. The patient has a significant abdominal pannus. The patient uses chair handles to go from a sitting to a standing position. Complains of burning discomfort in her feet as well. IMPRESSION: 1. Chronic back pain/hip pain, knee pain and pain radiating down to the feet. 2. Diabetes and peripheral neuropathy. 3. Hypertension. 4. Asthma. 5. Chronic colon problems. 6. Stomach problems. 7. Emotional problems. 8. Degenerative joint disease. 9. Arthritis. 10. Treatment of the patient with complex medical management. RECOMMENDATIONS: We discussed treatment options with the patient. At this juncture, we will continue with her medications. We have given the patient a physical therapy option. At this point, she has not undergone physical therapy. We explained to the patient that activities such as physical therapy can help to control pain when used in conjunction with her medications. The patient states that she keeps her medications in a guarded area. She feels that the hydrocodone 10/325 one p.o. q.i.d., total 115 tablets monthly are beneficial. She would like to continue with their use. Again, she states that she ____ with the orthopedic doctors. They did not feel that she has an option for knee replacement at this juncture. A number of orthopedic doctors have requested the patients have a BMI of 40. Hers is somewhat above that. We again encouraged her to stay as active as possible. The patient will call us if she has any concerns. [place] [address] PAIN MANAGEMENT CONSULTATION Name: ETTA HECTOR [facility] [id number] Admission: 08/15/18 Attend Phys: Heidi Harper MD Discharge: Date of : 63 Report #: [id number] We would like to thank you for letting us participate in her care. We hope she continues to improve. By: [id number]. Oswald Harper MD /nt
== END ==
LOC: M.PC 04:46
DX: M54.9 Dorsalgia, unspecified (principal); G89.29 Other chronic pain; E11.40 Type 2 diabetes mellitus with diabetic neuropathy, unspecified; I10 Essential (primary) hypertension; M19.90 Unspecified osteoarthritis, unspecified site; Z79.899 Other long term (current) drug therapy

== ENCOUNTER → 2018-09-12 | Outpatient (CLI) | payer OTHER, MEDICAID ==
--- NOTE | ~2018-09-12 | PAINCON ---
[address] [address] PAIN MANAGEMENT CONSULTATION Name: TAWNYETTA Vangie [id number] Admission: 09/12/18 Attend Phys: Heidi Harper MD Discharge: Date of : 63 Report #: [id number] THIS REPORT FOR: //name// CC: Heidi Amezquita DATE OF SERVICE: 09/12/2018 CHIEF COMPLAINT: Here for medication management. HISTORY OF PRESENT ILLNESS: The patient is a 53-year-old female who has been followed in the pain clinic. As you recall, she has significant problems with typp-ur-yzmw pain involving her knees. She has rated her pain today as a 6/7. She continues to have pain, which is problematic. She walks with use of a cane. Notes that her pain is increased with walking, sitting, standing, going from a sitting to a standing position, lifting, and bending. She feels that her medications are helpful. She is not having any side effects. ALLERGIES: No known drug allergies. CURRENT MEDICATIONS: [place] 10 mg one p.o. every 4-6 hours p.r.n., Zovirax topical cream, albuterol 2.5 mg 2 puffs p.r.n., Norvasc 10 mg, aspirin 81 mg, Celexa 40 mg, clonidine 1 mg, Flexeril 10 mg for spasms, fluconazole 150 mg, Lasix 40 mg, levothyroxine 100 mcg, meloxicam 15 mg, omeprazole 20 mg, Actos 30 mg, Phenergan 25 mg, Crestor 20 mg, and valsartan/hydrochlorothiazide 160/25. PAIN CLINIC ASSESSMENT/PQRS: 1. The patient is having qnzt-wk-pihi pain involving her knees as well as her hips. The patient has not been treated for rheumatoid arthritis. 2. Height 5 feet 4 inches, weight 364 pounds, BMI is 62.9. 3. VITAL SIGNS: Blood pressure 142/75, heart rate 75, respiratory rate 16, room air saturation 93%, and temperature 98. 4. Pain intensity 08/26. 5. Fall history: The patient has not fallen in the last 3 months. 6. Blood thinner. The patient is not on a blood thinning medication. 7. Hypertension. The patient is being treated for hypertension. 8. Opioids greater than 6 weeks. The patient receives her medications from [facility]. 9. Risk assessment tool, low for opioid use. 10. Functional assessment tool. 11. Recreational drug use. The patient denies use of recreational drugs. 12. Tobacco: The patient denies use of tobacco. 13. Alcohol: The patient denies use of alcoholic beverages. PHYSICAL EXAMINATION: GENERAL: The patient is a well-developed, well-nourished, obese white female, [place] [address] PAIN MANAGEMENT CONSULTATION Name: ETTA HECTOR Room: [facility]#: [id number] Admission: 09/12/18 Attend Phys: Heidi Harper MD Discharge: Date of : 63 Report #: [id number] appears her stated age. She is alert and oriented x 3. Her affect is appropriate. Speech is fluent. HEENT: Normocephalic, atraumatic. Extraocular eye muscles intact. Sclerae nonicteric. Mucous membranes are moist. NECK: Without adenopathy or JVD. HEART: Regular rate. LUNGS: Clear to auscultation. ABDOMEN: Nontender with panus. IMPRESSION: 1. Chronic back pain/hip pain, knee pain with gamt-vg-yhqh irritation. 2. Diabetes and peripheral neuropathy. 3. Hypertension. 4. Asthma. 5. Chronic colon problems. 6. Stomach problems. 7. Emotional problems. 8. Degenerative joint disease. 9. Osteoarthritis. RECOMMENDATIONS: We discussed treatment options with the patient. Risks and benefits of opioid use have been discussed. The patient is aware that these medications can be addictive. She is taking her medication as prescribed. She has been offered physical therapy. At this point, the patient does not feel that she is able to participate in physical therapy. We will renew her opioid medication. A script for [place] one p.o. q.i.d. has been written. She will call us if she has any concerns. We would like to thank you for letting us participate in her care and the patient is being maintained with complex medical management of opioid medications. By: [id number]. Oswald Harper MD /nt
== END ==
LOC: M.PC 04:59
DX: Z76.0 Encounter for issue of repeat prescription (principal); M54.9 Dorsalgia, unspecified; M25.559 Pain in unspecified hip; M25.569 Pain in unspecified knee; G89.29 Other chronic pain; I10 Essential (primary) hypertension; J45.909 Unspecified asthma, uncomplicated; M19.90 Unspecified osteoarthritis, unspecified site; Z79.899 Other long term (current) drug therapy

== ENCOUNTER → 2018-10-10 | Outpatient (CLI) | payer OTHER, MEDICAID ==
--- NOTE | ~2018-10-10 | PAINCON ---
[address] [address] PAIN MANAGEMENT CONSULTATION Name: TAWNYETTA [facility] [id number] Admission: 10/10/18 Attend Phys: Heidi Harper MD Discharge: Date of : 63 Report #: [id number] THIS REPORT FOR: //name// CC: Heidi Amezquita DATE OF SERVICE: 10/10/2018 CHIEF COMPLAINT: Here for medicine renewal. HISTORY: The patient is a 53-year-old female who has been followed in the pain clinic. As you recall, she has significant qcjl-kk-espr pain. She is not a surgical candidate at this juncture. She is being treated with conservative treatment. Her BMI precludes her from undergoing surgery at this juncture. She rates her pain as a 7/10. Feels that the [place] medication continues to be helpful. She walks with a cane. Activities, walking, sitting, standing, climbing stairs, going up and down stairs, lifting and bending all are problematic. Pain improves with use of heat as well as with rest. ALLERGIES: No known drug allergies. CURRENT MEDICATIONS: [place] 10 mg one p.o. 4-6 hours, Zovirax topical cream, albuterol 2.5 mg 2 puffs p.r.n., Norvasc 10 mg, aspirin 81 mg, Celexa 40 mg, clonidine 1 mg, Flexeril 10 mg for spasms, fluconazole 150 mg, Lasix 40 mg, levothyroxine 100 mcg, meloxicam 15 mg, omeprazole 20 mg, Actos 30 mg, Phenergan 25 mg, Crestor 20 mg, and valsartan/hydrochlorothiazide 160/25. PAIN CLINIC ASSESSMENT AND PQRS: 1. The patient is having jzgd-yu-xcau pain involving her knees. She is not being treated for rheumatoid arthritis. 2. Height 5 feet 4 inches, weight 369 pounds, BMI is 63.5. 3. Vital signs: Blood pressure 139/78, heart rate 79, respiratory rate 16, room air saturation 92%, temperature 98.2. 4. Pain intensity, 09/25. 5. Fall history. The patient has not fallen in the last 3 months. 6. Blood thinner. The patient is not on a blood thinning medication. 7. Hypertension. The patient is being treated for hypertension. 8. Opioids greater than 6 weeks. The patient receives her medication from one source, pain clinic. 9. Risk assessment tool, low for opioid use. 10. Functional assessment tool. 11. Recreational drug use. The patient denies use of recreational drugs. 12. Tobacco: The patient denies use of tobacco. 13. Alcohol: The patient denies use of alcoholic beverages. PHYSICAL EXAMINATION: [place] [address] PAIN MANAGEMENT CONSULTATION Name: ETTA HECTOR Vangie Room: [facility]#: [id number] Admission: 10/10/18 Attend Phys: Heidi Harper MD Discharge: Date of : 63 Report #: [id number] GENERAL: The patient is a well-developed, well-nourished, morbidly obese white female. Appears her stated age. She is alert and oriented x 3. Her affect is appropriate. Speech is fluent. HEENT: Normocephalic, atraumatic. Extraocular eye muscles intact. Sclerae nonicteric. Mucous membranes are moist. NECK: Without adenopathy or JVD. HEART: Regular rate. S1, distant tones. LUNGS: Clear to auscultation. ABDOMEN: Nontender. The patient has a pannus. IMPRESSION: 1. Chronic back pain/hip pain, knee pain with thwb-ug-yyra irritation. 2. Diabetes and peripheral neuropathy. 3. Hypertension. 4. Asthma. 5. Chronic colon problems. 6. Stomach problems. 7. Emotional problems. 8. Degenerative joint disease. 9. Osteoarthritis. RECOMMENDATIONS: We discussed treatment options with the patient. At this juncture, we will continue with her opioid medication. She is aware that opioid medications can be problematic in some patients. She feels that it is reasonably helpful for her at this point. It allows her to do more than she would be able to without their use. She keeps her medications in a guarded area. She has monitored the conversations regarding opioid use through the media. She feels that her medications are helpful. She would like to have them renewed. She would like to undergo surgery, but because of her BMI 63, she is not a candidate at this point. A script for her medications have been rewritten. The patient will continue with the hydrocodone 10/325 one p.o. 5 times daily. We would like to thank you for letting us participate in her care. We hope she continues to improve. By: [id number]. Oswald Harper MD /benjy
== END ==
LOC: M.PC 05:07
DX: Z76.0 Encounter for issue of repeat prescription (principal); M54.9 Dorsalgia, unspecified; G89.29 Other chronic pain; E11.40 Type 2 diabetes mellitus with diabetic neuropathy, unspecified; I10 Essential (primary) hypertension; J45.909 Unspecified asthma, uncomplicated; M19.90 Unspecified osteoarthritis, unspecified site; Z79.899 Other long term (current) drug therapy; Z79.82 Long term (current) use of aspirin; Z79.891 Long term (current) use of opiate analgesic

== ENCOUNTER → 2018-11-07 | Outpatient (CLI) | payer OTHER, MEDICAID | LOC: M.PC 02:11 | DX: R52 Pain, unspecified (principal); Z79.899 Other long term (current) drug therapy ==

== ENCOUNTER → 2018-12-05 | Outpatient (CLI) | payer OTHER, MEDICAID ==
--- NOTE | 2018-12-09 09:16 | PAINCON ---
[address] [address] PAIN MANAGEMENT CONSULTATION Name: ETTA HECTOR [facility] [id number] Admission: 12/05/18 Attend Phys: Heidi Harper MD Discharge: Date of : 63 Report #: [id number] THIS REPORT FOR: //name// CC: Heidi Amezquita DATE OF SERVICE: 12/05/2018 PRIMARY CARE PHYSICIAN: Jt Amezquita MD CHIEF COMPLAINT: "Here for medications. I am still having somc-ah-whac pain in my knees." HISTORY: The patient is a 53-year-old female who has been followed in the pain clinic. As you recall, she has significant problems with osteoarthritis involving her knees. She is lcsb-jn-rpnh discomfort. She has continued with conservative approach using hydrocodone to help with her medications. She also has tried use of nonsteroidal anti-inflammatory medications. She notes that activities such as walking, sitting, standing, climbing stairs can be quite problematic. She does ambulate with use of a cane. ALLERGIES: No known drug allergies. CURRENT MEDICATIONS: [place] 10 mg one p.o. 4-6 hours, Zovirax topical cream, albuterol 2.5 mg 2 puffs p.r.n., Norvasc 10 mg, aspirin 81 mg, Celexa 40 mg, clonidine 1 mg, Flexeril 10 mg for spasms, fluconazole 150 mg, Lasix 40 mg, levothyroxine 100 mcg, meloxicam 15 mg, omeprazole 20 mg, Actos, Phenergan 25 mg, Crestor 20 mg, valsartan/hydrochlorothiazide 160/25. PAIN CLINIC ASSESSMENT/PQRS: 1. The patient is being treated with opioid medication because of ydxj-uq-xxnx pain. She is not being treated for rheumatoid arthritis. 2. Height 5 feet 4 inches, weight 370 pounds, BMI is 63, respiratory rate is 16, room air saturation 93%, blood pressure 134/77, heart rate 103, temperature 98.2. 3. Pain intensity 10/26. 4. Fall history: The patient has not fallen in the last 3 months. 5. Blood thinner. The patient is not on a blood thinning medication. 6. Hypertension. The patient is being treated for hypertension. 7. Opioids greater than 6 weeks. The patient receives medication from one source, the pain clinic. 8. Risk assessment tool, low for opioid use. 9. Functional assessment tool. 10. Recreational drug use. The patient denies. 11. Tobacco: The patient denies use of tobacco. 12. Alcohol. The patient [place] [address] PAIN MANAGEMENT CONSULTATION Name: TAWNYETTA L Room: [facility]#: [id number] Admission: 12/05/18 Attend Phys: Heidi Harper MD Discharge: Date of : 63 Report #: [id number] PHYSICAL EXAMINATION: GENERAL: The patient is a well-developed, well-nourished white female, morbidly obese. She is alert and oriented x 3. Her affect is appropriate. Speech is fluent. HEENT: Normocephalic, atraumatic. Extraocular eye muscles intact. Sclerae nonicteric. Mucous membranes are moist. NECK: Without adenopathy or JVD. HEART: Regular rate. S1, distant tones. LUNGS: Clear to auscultation and difficult to appreciate secondary to the patient's body habitus. MUSCULOSKELETAL: Upper extremity muscle strength judged to be 5/5 for the major muscle groups in the upper extremity. Lower extremity muscle strength 5-/5 for the major muscle groups in the lower extremity. The patient has pain and discomfort, which is quite problematic with nlot-lf-rtbg discomfort in her knees. Walks with a very antalgic gait and uses a cane. IMPRESSION: 1. Chronic low back pain as well as hip pain with bilateral knee pain secondary to dqxx-lu-jjub irritation. 2. Diabetes with peripheral neuropathy. 3. Hypertension. 4. Asthma. 5. Chronic colon problems. 6. Stomach problems. 7. Emotional problems. 8. Degenerative joint disease. 9. Osteoarthritis. RECOMMENDATIONS: We discussed treatment options with the patient. At this juncture, we will continue with her medications. She is aware that opioid medications can be helpful. She is aware that opioid medications can become less effective as time goes on, secondary to tolerance. She is aware that some patients have problems with opioids and become addicted. She does not show any signs of addictive behavior. She has taken her medications as prescribed. States she keeps her medications in a guarded area. She feels that these medications continue to improve her quality of life. A script for her medications of hydrocodone 10/325 one p.o. q. 4 hours a total of 150 tablets have been provided. The patient will also call us if she has any concerns. We would like to thank you for letting us participate in her care. We hope she continues to improve. <ELECTRONICALLY SIGNED> By: Heidi Harper MD 12/09/18 0916 [id number]. Oswald Harper MD /PMT
== END ==
LOC: M.PC 05:00
DX: Z76.0 Encounter for issue of repeat prescription (principal); M54.5 Low back pain; G89.29 Other chronic pain; M25.561 Pain in right knee; M25.562 Pain in left knee; E11.42 Type 2 diabetes mellitus with diabetic polyneuropathy; I10 Essential (primary) hypertension; J45.909 Unspecified asthma, uncomplicated; K63.89 Other specified diseases of intestine; M19.90 Unspecified osteoarthritis, unspecified site; Z79.899 Other long term (current) drug therapy; Z79.891 Long term (current) use of opiate analgesic

== ENCOUNTER → 2019-01-02 | Outpatient (CLI) | payer OTHER, MEDICAID ==
--- NOTE | 2019-01-08 09:09 | PAINCON ---
[address] [address] PAIN MANAGEMENT CONSULTATION Name: TAWNYETTA Vangie Room: [facility]#: [id number] Admission: 01/02/19 Attend Phys: Heidi Harper MD Discharge: Date of : 63 Report #: [id number] THIS REPORT FOR: //name// CC: Heidi Amezquita DATE OF SERVICE: 01/02/2019 CHIEF COMPLAINT: Continued vusu-mm-dnri pain in the knees. HISTORY: The patient is a 53-year-old female who has been followed in the pain clinic. She has significant pain and discomfort. She has osteoarthritis involving her knees. She has fvsq-es-sgrc involvement in both joints. She finds ambulating quite problematic. Walks with use of a cane. She has pain in her knees, hips and low back area. She has noted worsening of the pain because of the changes in the weather pattern at this point. She continues to work toward losing weight. She has found that the hydrocodone continues to be beneficial. She is able to stay much more active than she would be without its use. Notes that walking, sitting, standing, going from a sitting to a standing, lifting and bending are all problematic. Rates her pain as an 8/10. She has returned today with the hopes of renewing her medication. She finds that it is beneficial and would like to continue its use. ALLERGIES: No known drug allergies. CURRENT MEDICATIONS: [place] 10 mg one p.o. 4-6 hours, Zovirax topical cream, albuterol 2.5 mg 2 puffs p.r.n., Norvasc 10 mg, aspirin 81 mg, Celexa 40 mg, clonidine 1 mg, Flexeril 10 mg for spasms, fluconazole 150 mg, Lasix 40 mg, levothyroxine 100 mcg, meloxicam 15 mg, omeprazole 20 mg, Actos, Phenergan 25 mg, Crestor 20 mg, valsartan/hydrochlorothiazide 160/25. PAIN CLINIC ASSESSMENT AND PQRS: 1. The patient is being treated for cifm-iu-fjsm pain because of osteoarthritis. She is not being treated for rheumatoid arthritis. 2. Height 5 feet 4 inches, weight 365 pounds, BMI is 62. 3. Vital Signs: Blood pressure 142/69, heart rate 78, respiratory rate 18, room air saturation 92%. Temperature 98.4. 4. Pain score 8/10. 5. Fall history: The patient has not fallen in the last 3 months. 6. Blood thinner. The patient is not on a blood thinning medication. 7. Hypertension. The patient is being treated for hypertension. 8. Opioids greater than 6 weeks. The patient receives medication [facility], the pain clinic. 9. Risk assessment tool, low for opioid use. 10. Functional assessment tool. 11. Recreational drug use. [place] [address] PAIN MANAGEMENT CONSULTATION Name: TAWNYETTA L Room: [facility]#: [id number] Admission: 01/02/19 Attend Phys: Heidi Harper MD Discharge: Date of : 63 Report #: [id number] 12. Tobacco: The patient denies. 13. Alcohol: The patient denies use of alcoholic beverages. PHYSICAL EXAMINATION: GENERAL: The patient is a well-developed, well-nourished white female. Appears her stated age. She is morbidly obese. She is alert and oriented x 3. Her affect is appropriate. Speech is fluent. HEENT: Normocephalic, atraumatic. Extraocular eye muscles intact. Sclerae nonicteric. Mucous membranes are moist. NECK: Without adenopathy or JVD. HEART: Regular rate. S1, distant tones. LUNGS: Clear to auscultation, difficult to hear secondary to the patient's body habitus. MUSCULOSKELETAL: Upper extremity muscle strength judged to be 5/5 for the major muscle groups in the upper extremity. Lower extremity muscle strength 5-/5 for the major muscle groups in the lower extremity. The patient has vzfv-gx-aqey pain in her knees. Walks with an antalgic gait with a very waddling motion. IMPRESSION: 1. Chronic low back pain as well as hip pain and bilateral knee pain secondary to urnx-yn-ivhv irritation. 2. Diabetes with peripheral neuropathy. 3. Hypertension. 4. Asthma. 5. Chronic colon problems. 6. Stomach problems. 7. Emotional problems. 8. Degenerative joint disease. 9. Osteoarthritis. RECOMMENDATIONS: We discussed treatment options with the patient. Risks and benefits of opioid medications again are reviewed. The patient is aware that opioid medications can become less effective over time because of tolerance. She feels her medications are working well. She continues to use her medication as prescribed. Keeps them in a guarded area. She feels that she would be more limited in her ability to ambulate and engage in activities without use of her medications. She is not sedated. She feels overall that things are going reasonably well and would like to have her medications renewed. A script for her medications has been renewed. She will continue with hydrocodone 10/325 one p.o. q. 4 hours p.r.n., total of 150 tablets have been provided. [address] [place] [address] PAIN MANAGEMENT CONSULTATION Name: TAWNYETTA Room: [facility]#: [id number] Admission: 01/02/19 Attend Phys: Heidi Harper MD Discharge: Date of : 63 Report #: [id number] We would like to thank you for letting us participate in her care. We hope she continues to improve. <ELECTRONICALLY SIGNED> By: Heidi Harper MD 01/08/19 0909 [id number] 1527N. Oswald Harper MD /nt
== END ==
LOC: M.PC 04:36
DX: G89.29 Other chronic pain (principal); M54.5 Low back pain; M25.561 Pain in right knee; M25.562 Pain in left knee; E11.40 Type 2 diabetes mellitus with diabetic neuropathy, unspecified; I10 Essential (primary) hypertension; J45.909 Unspecified asthma, uncomplicated; M19.90 Unspecified osteoarthritis, unspecified site; Z79.891 Long term (current) use of opiate analgesic; Z79.899 Other long term (current) drug therapy

== ENCOUNTER → 2019-01-30 | Outpatient (CLI) | payer OTHER, MEDICAID | LOC: M.PC 05:11 | DX: M54.5 Low back pain (principal); M25.559 Pain in unspecified hip; M25.569 Pain in unspecified knee ==

== ENCOUNTER → 2019-02-27 | Outpatient (CLI) | payer OTHER, MEDICAID ==
--- NOTE | 2019-03-05 13:30 | PAINCON ---
[address] [address] PAIN MANAGEMENT CONSULTATION Name: TAWNYETTA Vangie [id number] Admission: 02/27/19 Attend Phys: Heidi Harper MD Discharge: Date of : 63 Report #: [id number] THIS REPORT FOR: //name// CC: Heidi Amezquita DATE OF SERVICE: 02/27/2019 CHIEF COMPLAINT: Here for medication renewal. HISTORY: The patient is a 53-year-old female who has been followed in the pain clinic because of chronic pain. Her pain primarily is a result of aiiw-ne-pnfc pain in her knee. At this juncture, she is not considered a candidate given her body habitus. She rates her pain as a 9/10. Feels that the hydrocodone medications are helpful. She finds that the muscle relaxant medications are beneficial as well. She does continue to use meloxicam. She is not having any problems with her GI tract. She does walk and ambulate with a cane because of the xztu-hq-nvra pain involving her knees. Also, has pain in her hip areas. ALLERGIES: No known drug allergies. CURRENT MEDICATIONS: [place] 10 mg one p.o. q. 4-6 hours, Zovirax topical cream, albuterol 2.5 mg 2 puffs p.r.n., Norvasc 10 mg, aspirin 81 mg, Celexa 40 mg, clonidine 1 mg, Flexeril 10 mg for spasms, fluconazole 150 mg, Lasix 40 mg, levothyroxine 100 mcg, meloxicam 15 mg, omeprazole 20 mg, Actos, Phenergan 25 mg, Crestor 20 mg, valsartan, hydrochlorothiazide 160/25. PAIN CLINIC AND PQRS: 1. The patient is being treated for nbmh-ed-myzl pain because of her pain in her knees. She is not being treated for rheumatoid arthritis. 2. Height 5 feet 4 inches, weight 373 pounds, BMI is 64. 3. Vital Signs: Blood pressure 130/84, heart rate 75, respiratory rate 20, room air saturation 97%, temperature 98.4. 4. Pain intensity 11/26. 5. Fall history: The patient has not fallen in the last 3 months. 6. Blood thinner. The patient is not on a blood thinning medication. 7. Hypertension. The patient is being treated for hypertension. 8. Opioids greater than 6 weeks. The patient [facility]. 9. Risk assessment tool, low for opioid use. 10. Functional assessment tool. This has been reviewed. 11. Recreational drug use: The patient denies. 12. Tobacco: The patient denies. 13. Alcohol. The patient denies use of alcoholic beverages. PHYSICAL EXAMINATION: [address] [place] [address] PAIN MANAGEMENT CONSULTATION Name: ETTA HECTOR Room: [facility]#: [id number] Admission: 02/27/19 Attend Phys: Heidi Harper MD Discharge: Date of : 63 Report #: [id number] GENERAL: The patient is a well-developed, well-nourished, morbidly obese white female, appears her stated age. She is alert and oriented x 3. Her affect is appropriate. Speech is fluent. HEENT: Normocephalic, atraumatic. Extraocular eye muscles intact. NECK: Without adenopathy. HEART: Regular rate, distant. LUNGS: Distant. MUSCULOSKELETAL: Upper extremity muscle strength judged to be 5-/5 for the major muscle groups. Lower extremity muscle group strength 5-/5 for the major muscle groups. Lower extremity, the patient walks with a very slow antalgic gait. She does use a cane. There is a waddling motion in her gait. IMPRESSION: 1. Chronic pain with pain in the knees as well as the hip secondary to faiu-up-tfbi pain and irritation. 2. Diabetes and peripheral neuropathy. 3. Hypertension. 4. Asthma. 5. Chronic colon problems. 6. Stomach problems. 7. Emotional problems. 8. Degenerative joint disease. 9. Osteoarthritis. RECOMMENDATIONS: We discussed treatment options with the patient. Risks and benefits of opioids were discussed. They can become less effective over time secondary to development of tolerance. The patient is aware that this can occur. She is not showing signs of addiction. She has taken the medication as prescribed. She feels that they enable her to stay much more active than she would be without their use. Feels that her pain is about 50% improved with the medications. Does note continued pain and discomfort with walking, sitting, standing, climbing stairs as well as bending and lifting. She would like to have her medications renewed. A script for her medications for the next 2 months have been provided. The patient will continue with hydrocodone 10/325 one p.o. q. 4 hours p.r.n., total of 150 tablets and she will call us if she has any concerns. We would like to thank you for letting us participate in her care. We hope she continues to improve. <ELECTRONICALLY SIGNED> By: Heidi Harper MD 03/05/19 1330 1422 [id number]. MD KRISTOPHER Degroot
== END ==
LOC: M.PC 05:22
DX: G89.29 Other chronic pain (principal); E11.9 Type 2 diabetes mellitus without complications; G62.9 Polyneuropathy, unspecified; I10 Essential (primary) hypertension; J45.909 Unspecified asthma, uncomplicated; M19.90 Unspecified osteoarthritis, unspecified site

== ENCOUNTER → 2019-04-24 | Outpatient (CLI) | payer OTHER, MEDICAID ==
[~2019-04-24] MED LIST changes: +NARCAN4 MG NARES
--- NOTE | 2019-04-29 08:37 | PAINCON ---
[address] [address] PAIN MANAGEMENT CONSULTATION Name: ETTA HECTOR Room: [facility].#: [id number] Admission: 04/24/19 Attend Phys: Heidi Harper MD Discharge: Date of : 63 Report #: [id number] THIS REPORT FOR: //name// cc: Jt Amezquita MD, Ram MD ~ THIS REPORT FOR: //name// CC: Heidi Amezquita DATE OF SERVICE: 04/24/2019 CHIEF COMPLAINT: Continued rxqv-uj-njmx pain involving her knees. HISTORY: The patient is a 53-year-old female. As you may recall, she has chronic pain. She has iuwp-cv-rfzf involvement of her knees. Also, has some pain in the low back area and in her hips. This has been ongoing for a number of years. At this juncture, she is not a candidate for surgery. This is secondary to her BMI of about 64. ALLERGIES: No known drug allergies. CURRENT MEDICATIONS: [place] 10 mg one p.o. q. 4-6 hours, Zovirax topical cream, albuterol 2.5 mg 2 puffs p.r.n., Norvasc 10 mg, aspirin 81 mg, Celexa 40 mg, clonidine 1 mg, Flexeril 10 mg for spasms, fluconazole 150 mg, Lasix 40 mg, levothyroxine 100 mcg, meloxicam 15 mg, omeprazole 20 mg, Actos, Phenergan 25 mg, Crestor 20 mg, valsartan/hydrochlorothiazide 160/25. PAIN CLINIC ASSESSMENT AND PQRS: 1. The patient is being treated for pbpd-gp-zewg pain involving her knees. She is not being treated for rheumatoid arthritis. 2. Height 5 feet 4 inches, weight 375 pounds, BMI is 64.6. 3. Vital Signs: Blood pressure 179/78, heart rate 93, respiratory rate 20, room air saturation 93%, temperature 98.4. PAIN CLINIC 09/25. 1. Fall history: The patient has not fallen in the last 3 months. 2. Blood thinner. The patient is not on a blood thinning medication. 3. Hypertension. The patient is being treated for hypertension. 4. Opioids greater than 6 weeks. The patient received medication from [facility] pain clinic. 5. Risk assessment tool, low for opioid use. 6. Functional assessment tool. 7. Recreational drug use: The patient denies. 8. Tobacco: The patient denies. 9. Alcohol: [place] [address] PAIN MANAGEMENT CONSULTATION Name: ETTA HECTOR Vangie Room: [facility]#: [id number] Admission: 04/24/19 Attend Phys: Heidi Harper MD Discharge: Date of : 63 Report #: [id number] PHYSICAL EXAMINATION: GENERAL: The patient is a well-developed, well-nourished, morbidly obese white female, appears her stated age. She is alert and oriented x 3. Her affect is appropriate. Speech is fluent. HEENT: Normocephalic, atraumatic. Extraocular eye muscles intact. Sclerae nonicteric. Mucous membranes moist. NECK: Without adenopathy or JVD. LUNGS: Generally distant. ABDOMEN: Protuberant. MUSCULOSKELETAL: Upper extremity muscle strength judged to be 5-/5 for the major muscle groups in the upper extremity. Lower extremity muscle strength 5-/5 for the major muscle groups in the lower extremity. The patient walks with an antalgic gait. She uses a cane. Has a waddling motion to her gait. IMPRESSION: 1. Chronic pain in the knees with stwz-bd-jcwl irritation. 2. Diabetes and peripheral neuropathy. 3. Hypertension. 4. Asthma. 5. Chronic colon problems. 6. Stomach problems. 7. Emotional problems. 8. Degenerative joint disease. 9. Osteoarthritis. RECOMMENDATIONS: We discussed treatment options with the patient. At this juncture, we will continue with her medications. She finds medications are helpful. She has had no complications with their use. She is aware that opioid medications can become less effective as time goes on. She feels her medications continue to provide benefit. She is about 50% improved with their use. She keeps her medications in a guarded area. She is aware that some patients become addicted to opioid medications. She is showing no signs of addiction. We will renew her medications. A script for hydrocodone 10/325 one p.o. q. 4-6 hours has been provided a total of 150 tablets. The patient will also continue with this medication to help control her pain. We discussed the benefits of Narcan as nasal spray. We explained to the patient should respiratory problems arise, this medication can be used. We also explained to the patient that sometimes family members might use opioid medications that they have stolen from the patient. The patient and family member have problems have problems and it is thought that it is from opioid use of the Narcan would be a reasonable option. [address] [address] PAIN MANAGEMENT CONSULTATION Name: ETTA HECTOR Room: [facility]#: [id number] Admission: 04/24/19 Attend Phys: Heidi Harper MD Discharge: Date of : 63 Report #: [id number] We would like to thank you for letting us participate in her care. We hope she continues to improve. <ELECTRONICALLY SIGNED> By: Heidi Harper MD 04/29/19 0837 1455 [id number] Harper MD /[facility]
== END ==
LOC: M.PC 08:57
DX: M25.561 Pain in right knee (principal); M25.562 Pain in left knee; M19.90 Unspecified osteoarthritis, unspecified site; J45.909 Unspecified asthma, uncomplicated; I10 Essential (primary) hypertension; E11.42 Type 2 diabetes mellitus with diabetic polyneuropathy; Z79.891 Long term (current) use of opiate analgesic

== ENCOUNTER → 2019-06-19 | Outpatient (CLI) | payer OTHER, MEDICAID ==
--- NOTE | ~2019-06-19 | PAINCON ---
[address] [address] PAIN MANAGEMENT CONSULTATION Name: ETTA HECTOR Room: [facility]#: [id number] Admission: 06/19/19 Attend Phys: Heidi Harper MD Discharge: Date of : 63 Report #: [id number] THIS REPORT FOR: //name// cc: Jt Amezquita MD, Ram MD ~ THIS REPORT FOR: //name// CC: Heidi Amezquita DATE OF SERVICE: 06/19/2019 CHIEF COMPLAINT: Still painful left and right knee because of slkw-mt-eqsv pain. HISTORY: The patient is a 53-year-old female who has been followed in the pain clinic. As you recall, she has chronic pain. She has pain in her knees bilaterally. There is keus-ks-ovrd involvement. She rates her pain today as 8/10. She notes that activities, walking, sitting, standing, climbing stairs, going from sitting to standing, lifting and bending are all problematic. She feels that the current medication regimen of hydrocodone is helpful. She would be unable to do activities of daily living without her medication. She is concerned about the coronavirus. She is staying inside. ALLERGIES: No known drug allergies. CURRENT MEDICATIONS: [place] 10 mg one p.o. every 4-6 hours, Zovirax topical cream, albuterol 2.5 mg 2 puffs p.r.n., Norvasc 10 mg, aspirin 81 mg, Celexa 40 mg, clonidine 1 mg, Flexeril 10 mg for spasms, fluconazole 150 mg, Lasix 40 mg, levothyroxine 100 mcg, meloxicam 15 mg, omeprazole 20 mg, Actos, Phenergan 25 mg, Crestor 20 mg, valsartan/hydrochlorothiazide 160/25. PAIN CLINIC ASSESSMENT /PQRS: 1. The patient is being treated for bmvg-lx-nxsk pain involving her knees. She is not being treated for rheumatoid arthritis. 2. Height 5 feet 4 inches, weight 375 pounds, BMI is 64.5. 3. Vital Signs: Blood pressure 136/74, heart rate 96, respiratory rate 16, room air saturation is 94%, temperature 97.9. 4. Pain intensity is 8/10. 5. Fall history: The patient has not fallen in the last 3 months. 6. Blood thinner. The patient is not on a blood thinning medication. 7. Hypertension. The patient is being treated for hypertension. 8. Opioids greater than 6 weeks. The patient received medication from the pain clinic. 9. Risk assessment tool, low for opioids. 10. [place] [address] PAIN MANAGEMENT CONSULTATION Name: ETTA HECTOR Room: [facility]#: [id number] Admission: 06/19/19 Attend Phys: Heidi Harper MD Discharge: Date of : 63 Report #: [id number] 11. Recreational drug use: The patient denies. 12. Tobacco: The patient denies. 13. Alcohol: The patient denies. PHYSICAL EXAMINATION: GENERAL: The patient is a well-developed, well-nourished, morbidly obese white female, appears her stated age. She is alert and oriented x 3. Her affect is appropriate. Speech is fluent. HEENT: Normocephalic, atraumatic. Extraocular eye muscles intact. Sclerae nonicteric. Mucous membranes are moist. NECK: Without adenopathy or JVD. LUNGS: Generally distant. ABDOMEN: Protuberant. MUSCULOSKELETAL: Upper extremity muscle strength judged to be 5-/5 for the major muscle groups in the upper extremity. Lower extremity muscle strength judged 5/5 for the major muscle groups in the lower extremity. The patient walks wide antalgic gait. Uses a cane. Has a somewhat waddling motion to her gait. IMPRESSION: 1. Chronic pain with knee pain, izvz-nl-urmv irritation. 2. Diabetes with peripheral neuropathy. 3. Hypertension. 4. Asthma. 5. Chronic colon problems. 6. Stomach problems. 7. Emotional problems. 8. Degenerative joint disease. 9. Osteoarthritis. RECOMMENDATIONS: We discussed treatment options with the patient. Again we discussed the treatment option with the patient. At this juncture, we will continue with her medications. She finds that these medications, able her to at least a somewhat active. Without them she finds it almost impossible, feels that her pain is about 50% improved with use of these medications. A script for hydrocodone 10/325 one p.o. every 4 hours has been provided. The patient will continue with her medication as prescribed. She is aware that opioid medications can over time become less effective due to development of tolerance. She would like to have her medications renewed. She will follow up in the future as needed. She will continue to observe social isolation in this time of COVID-19 [place] [address] PAIN MANAGEMENT CONSULTATION Name: ETTA HECTOR [id number] Admission: 06/19/19 Attend Phys: Heidi Harper MD Discharge: Date of : 63 Report #: [id number] We would like to thank you for letting us to participate in her care. We hope she continues to improve. By: 1415 1430N. Oswald Harper MD /[facility]
== END ==
LOC: M.PC 01:28
DX: M25.561 Pain in right knee (principal); M25.562 Pain in left knee; E11.42 Type 2 diabetes mellitus with diabetic polyneuropathy; I10 Essential (primary) hypertension; J45.909 Unspecified asthma, uncomplicated; K63.9 Disease of intestine, unspecified; K31.89 Other diseases of stomach and duodenum; M19.90 Unspecified osteoarthritis, unspecified site

== ENCOUNTER → 2019-08-14 | Outpatient (CLI) | payer OTHER, MEDICAID ==
--- NOTE | ~2019-08-14 | PAINCON ---
[address] [address] PAIN MANAGEMENT CONSULTATION Name: ETTA HECTOR Room: [facility]#: [id number] Admission: 08/14/19 Attend Phys: Heidi Harper MD Discharge: Date of : 63 Report #: [id number] THIS REPORT FOR: //name// cc: Jt Amezquita MD, Ram MD ~ THIS REPORT FOR: //name// CC: Heidi Amezquita MD DATE OF SERVICE: 08/14/2019 CHIEF COMPLAINT: Continued cqev-kf-icip pain in the knees. HISTORY: The patient is a 54-year-old female who has been followed in the Pain Clinic. She has significant pain in her knees. There is mcim-tc-hene involvement. She has returned today for renewal of her medications. Activities of daily living are quite problematic because of the pain. She is unable to climb stairs and lifting and bending are problematic. She has returned today for renewal of her medication. She is not having any problems with it. She does have some low back and hip discomfort. She feels overall that the medications make her more capable of doing physical activity. She notes pain with walking, sitting, standing, climbing stairs, bending and lifting. She is not having any problems with confusion are clouding of her sensorium with these medications. ALLERGIES: No known drug allergies. CURRENT MEDICATIONS: [place] 10 mg one p.o. q. 4 hours p.r.n., Zovirax topical cream, albuterol 2.5 mg 2 puffs, Norvasc 10 mg, aspirin 81 mg, Celexa 40 mg, clonidine 1 mg, Flexeril 10 mg for spasms, fluconazole 150 mg, Lasix 40 mg, levothyroxine 100 mcg, meloxicam 15 mg, omeprazole 20 mg, Actos, Phenergan 25 mg, Crestor 20 mg, and valsartan/hydrochlorothiazide 160/25. PAIN CLINIC ASSESSMENT/PQRS: 1. The patient is being treated for gbtk-yh-botk involvement of her knees. She is not being treated for rheumatoid arthritis. 2. Height 5 feet 4 inches, weight 380 pounds, BMI is 64. 3. Vital Signs: Blood pressure 151/77, heart rate 89, respiratory rate 18, room air saturation 92%, and temperature 97.0. 4. Pain intensity, 8/10. 5. Fall history: The patient has not fallen in the last 3 months. 6. Blood thinner. The patient is not on a blood thinning medication. 7. Hypertension. The patient is being treated for hypertension. 8. Opioids greater than 6 weeks. The [place] [address] PAIN MANAGEMENT CONSULTATION Name: ETTA HECTOR Room: [facility]#: [id number] Admission: 08/14/19 Attend Phys: Heidi Harper MD Discharge: Date of : 63 Report #: [id number] Clinic. 9. Risk assessment tool, low for opioid use. 10. Functional assessment tool. 11. Recreational drug use. The patient denies. 12. Tobacco: The patient denies. 13. Alcohol: The patient denies. PHYSICAL EXAMINATION: GENERAL: The patient is a well-developed, well-nourished, morbidly obese white female who appears her stated age. She is alert and oriented x 3. Her affect is appropriate. Speech is fluent. HEENT: Normocephalic, atraumatic. Extraocular eye muscles intact. Sclerae nonicteric. Mucous membranes are moist. NECK: Without adenopathy or JVD. CARDIOVASCULAR: Regular rate. ABDOMEN: Protuberant. MUSCULOSKELETAL: Upper extremity muscle strength is judged to be 5/5 for the major muscle groups in the upper extremity. The patient's lower extremity muscle strength is judged to be 5-/5 for the major muscle groups in the lower extremity. The patient walks with an antalgic gait. She uses a cane. Used as a somewhat waddling motion in her gait. IMPRESSION: 1. Chronic pain with bilateral knee pain with ycby-jd-qmhe irritation. 2. Diabetes with peripheral neuropathy. 3. Hypertension. 4. Asthma. 5. Chronic colon problems. 6. Stomach problems, emotional problems, degenerative joint disease. 7. Osteoarthritis. RECOMMENDATION: We discussed treatment options with the patient. At this juncture, we will continue with her medications. She feels that the medications are helpful. She feels that she is able to have a more physical existence with these medications. She feels that she is about 50% improved with her medications. She is aware that opioid medications can become less effective as time goes on. She keeps her medications in a guarded area. She will follow up in the future as needed. She is aware that COVID-19 pandemic is upon us. She stays at home. She does have a number of comorbidities, which would put her at a higher risk of problems. [address] [address] PAIN MANAGEMENT CONSULTATION Name: ETTA HECTOR Room: [facility].#: [id number] Admission: 08/14/19 Attend Phys: Heidi Harper MD Discharge: Date of : 63 Report #: [id number] We would like to thank you for letting us participate in her care. We hope she continues to improve. By: 1211 0432N. Oswald Harper MD /nt
== END ==
LOC: M.PC 04:21
DX: M25.561 Pain in right knee (principal); M25.562 Pain in left knee; I10 Essential (primary) hypertension; F11.20 Opioid dependence, uncomplicated; J45.909 Unspecified asthma, uncomplicated; M19.90 Unspecified osteoarthritis, unspecified site; E11.40 Type 2 diabetes mellitus with diabetic neuropathy, unspecified; K63.9 Disease of intestine, unspecified; F98.9 Unspecified behavioral and emotional disorders with onset usually occurring in childhood and adolescence

== ENCOUNTER → 2019-10-09 | Outpatient (CLI) | payer OTHER, MEDICAID ==
--- NOTE | 2019-10-21 14:07 | PAINCON ---
[address] [address] PAIN MANAGEMENT CONSULTATION Name: ETTA HECTOR Room: [facility]#: [id number] Admission: 10/09/19 Attend Phys: Heidi Harper MD Discharge: Date of : 63 Report #: [id number] THIS REPORT FOR: //name// cc: Jt Amezquita MD, Ram MD ~ THIS REPORT FOR: //name// CC: Heidi Amezquita DATE OF SERVICE: 10/09/2019 CHIEF COMPLAINT: Continued cyry-pj-xziq pain in the knees. HISTORY: The patient is a 54-year-old female who has been followed in the pain clinic. She still is having significant pain in her knees, hips and back. As you may recall, she has xczo-xb-wqpo pain, which involves her knees. Activities of daily living such as climbing, bending are problematic. She has returned today for renewal of her medications. Overall, things are going reasonably well. She feels that she is able to tolerate her medication and is ambulating with a cane. She finds that activities of daily living have become more and more problematic secondary to pain, which is persistent. She notes that walking, sitting, standing, climbing stairs, sitting, and bending as well as lifting are problematic. Changes in the weather can be problematic as well. ALLERGIES: No known drug allergies. CURRENT MEDICATIONS: [place] 10 mg one p.o. q. 4 hours p.r.n., Zovirax topical cream, albuterol 2.5 mg 2 puffs, Norvasc 10 mg, aspirin 81 mg, Celebrex 400 mg, clonidine 1 mg, Flexeril 10 mg for spasms, fluconazole 150 mg, Lasix 40 mg, levothyroxine 100 mcg, meloxicam 15 mg, omeprazole 20 mg, Actos, Phenergan 25 mg, Crestor 20 mg, valsartan/hydrochlorothiazide 160/25. PAIN CLINIC ASSESSMENT AND PQRS: 1. The patient is being treated for gtdt-wb-xdls involvement in her knees. She is not being treated for rheumatoid arthritis. 2. Height 5 feet 4 inches, weight 375 pounds, BMI is 64, respiratory rate is 18, room air saturation 92%. 3. Blood pressure 133/74, heart rate 92, temperature 96.8. 4. Pain intensity 7/10. 5. Fall History: The patient has not fallen in the last 3 months. 6. Blood Thinner: The patient is not on a blood thinning medication. 7. Hypertension: The patient is being treated for hypertension. 8. Opioids greater than 6 weeks: The patient received medication from the pain clinic. 9. Risk assessment tool: [place] [address] PAIN MANAGEMENT CONSULTATION Name: ETTA HECTOR Vangie Room: [facility]#: [id number] Admission: 10/09/19 Attend Phys: Heidi Harper MD Discharge: Date of : 63 Report #: [id number] 10. Functional assessment tool: Reviewed. 11. Recreational drug use: The patient denies. 12. Tobacco: The patient denies. 13. Alcohol: The patient denies. PHYSICAL EXAMINATION: GENERAL: The patient is a well-developed, well-nourished, morbidly obese white female, appears her stated age. She is alert and oriented x 3. Her affect is appropriate. Speech is fluent. HEENT: Normocephalic, atraumatic. Extraocular eye muscles are intact. Sclerae nonicteric. Mucous membranes are moist. The patient is wearing a mask. NECK: Without adenopathy. CARDIAC: Regular rate. LUNGS: Distant. ABDOMEN: Protuberant. MUSCULOSKELETAL: Upper extremity muscle strength judged to be 5/5 for the major muscle groups in the upper extremity. The patient has pain and discomfort in the lower portion of her leg at the level of the knees. There is tzhn-ru-zojw involvement: The patient has a very antalgic gait. She uses a cane. She uses her arms to go from a sitting to a standing position. The patient has a waddling gait. IMPRESSION: 1. Chronic pain in the knees bilaterally with oeev-tp-zegw irritation. 2. Diabetes with peripheral neuropathy. 3. Hypertension. 4. Asthma. 5. Chronic colon problems. 6. Stomach problems. 7. Emotional problems. 8. Degenerative joint disease. 9. Osteoarthritis. RECOMMENDATIONS: We discussed treatment options with the patient. We will continue with her medication as we have provided. She feels that she gets about 50% improvement with her current medication. She is aware that this medication can become less effective as time goes on because of development of tolerance. The patient has not shown any signs of addiction. She takes her medication as prescribed. She is sheltering at home because of the pandemic of COVID-19. She will call us if [place] [address] PAIN MANAGEMENT CONSULTATION Name: ETTA HECTOR Room: [facility] Karri#: [id number] Admission: 10/09/19 Attend Phys: Heidi Harper MD Discharge: Date of : 63 Report #: [id number] We would like to thank you for letting us participate in her care. Her medications have been sent to her pharmacy at [facility]. <ELECTRONICALLY SIGNED> By: Heidi Harper MD 10/21/19 1407 [id number]. Oswald Harper MD /nt
== END ==
LOC: M.PC 04:23
PROVIDERS: ATTEND Anesthesiology Pain Medicine
DX: G89.29 Other chronic pain (principal); M25.562 Pain in left knee; M25.561 Pain in right knee; E11.42 Type 2 diabetes mellitus with diabetic polyneuropathy; I10 Essential (primary) hypertension; J45.909 Unspecified asthma, uncomplicated; M19.90 Unspecified osteoarthritis, unspecified site; Z68.44 Body mass index [BMI] 60.0-69.9, adult; Z79.899 Other long term (current) drug therapy

== ENCOUNTER → 2020-01-01 | Outpatient (CLI) | payer OTHER, MEDICAID ==
--- NOTE | ~2020-01-01 | PAINCON ---
[address] [address] PAIN MANAGEMENT CONSULTATION Name: ETTA HECTOR Room: [facility]#: [id number] Admission: 01/01/20 Attend Phys: Heidi Harper MD Discharge: Date of : 63 Report #: [id number] THIS REPORT FOR: //name// cc: Jt Amezquita MD, Ram MD ~ THIS REPORT FOR: //name// CC: Heidi Amezquita DATE OF SERVICE: 01/01/2020 CHIEF COMPLAINT: Still have rdhk-qm-wjpx pain in the knees, which is very painful. HISTORY: The patient is a 54-year-old female who has been followed in the Pain Clinic. As you may recall, she has chronic pain. Has low back pain. Has pain in her hips. She has pain in her knees because of rjvu-rj-dbax wear and tear. She has returned today for renewal of her medication. She has had this pain ongoing for a number of years. She rates her pain as a 6/10. She feels that her medications of hydrocodone 10 mg 1 p.o. every 4 hours, is helpful. Still has difficulty with walking, sitting, standing, climbing stairs, bending, and lifting. Notes that the pain increases when the weather changes. She has used medications, rest and heat to help control the discomfort. She has returned today for renewal of her medications. ALLERGIES: No known drug allergies. CURRENT MEDICATIONS: [place] one p.o. every 4 hours p.r.n., Zovirax topical cream, albuterol 2.5 mg 2 puffs, Norvasc 10 mg, aspirin 81 mg, Celebrex 400 mg, clonidine 1 mg, Flexeril 10 mg for spasms, fluconazole 150 mg, Lasix 40 mg, levothyroxine 100 mcg, meloxicam 15 mg, omeprazole 20 mg, Actos, Phenergan 25 mg, Crestor 20 mg, and valsartan/hydrochlorothiazide 160/25. PAIN CLINIC ASSESSMENT AND PQRS: 1. The patient is being treated for qnqh-ux-pify involvement of her knees. She is not being treated for rheumatoid arthritis. 2. Height 5 feet 4 inches, weight 369 pounds, BMI 63. 3. Vital Signs: Blood pressure is 181/82, heart rate 101, respiratory rate 18, room air saturation 96%, and temperature 96.3. 4. Pain intensity 6/10. 5. Fall history: The patient has not fallen in the last 3 months. 6. Blood thinner. The patient is not on a blood thinning medication. 7. Opioids greater than 6 weeks. The patient receives medication from the Pain Clinic. 8. Risk assessment tool, [place] [address] PAIN MANAGEMENT CONSULTATION Name: ETTA HECTOR Vangie Room: [facility]#: [id number] Admission: 01/01/20 Attend Phys: Heidi Harper MD Discharge: Date of : 63 Report #: [id number] 9. Functional assessment tool reviewed. 10. Recreational drug use. The patient denies. 11. Tobacco: The patient denies. 12. Alcohol: The patient does not drink. PHYSICAL EXAMINATION: GENERAL: The patient is a well-developed, well-nourished, morbidly obese white female, appears her stated age. She is alert and oriented x 3. Her affect is appropriate. Speech is fluent. HEENT: Normocephalic, atraumatic. Extraocular eye muscles intact. The patient is wearing a mask. NECK: Without adenopathy. HEART: Regular. LUNGS: Distant. ABDOMEN: Protuberant. MUSCULOSKELETAL: Upper extremity muscle strength judged to be 5/5 for the major muscle groups in the upper extremity. The patient has pain and discomfort in lower portion of her back. Also, has pain in her knees bilaterally. Has zimj-up-mvsv involvement. Walks with an antalgic gait. She uses her cane. Use her arms to go from a sitting to a standing position before walking. Has a waddling gait. IMPRESSION: 1. Chronic pain in the knees bilaterally with gawv-wi-gmgz irritation. 2. Diabetes with peripheral neuropathy. 3. Hypertension. 4. Asthma. 5. Chronic colon problems. 6. Stomach problems. 7. Emotional problems. 8. Degenerative joint disease. 9. Osteoarthritis. RECOMMENDATIONS: We discussed treatment options with the patient. At this juncture, we will continue with her medications. She feels medications are helpful. She has been sheltering at home because of the COVID-19. We have discussed the limitations of opioid medications. They can become less effective as time goes on. The patient is aware that some patients have become addicted to the medications. They have used other medications as well and overdose. The patient feels that her medications are helpful. They enable her to engage in activities, she would not be able to without their use. A script for her medications of hydrocodone have been written and sent to her pharmacy. She will [address] [address] PAIN MANAGEMENT CONSULTATION Name: ETTA HECTOR Room: [facility]#: [id number] Admission: 01/01/20 Attend Phys: Heidi Harper MD Discharge: Date of : 63 Report #: [id number] call us if she has any concerns. She will continue with the medications as prescribed. By: [id number]. Oswald Harper MD /nt
== END ==
LOC: M.PC 09:08
PROVIDERS: ATTEND Anesthesiology Pain Medicine
DX: M25.561 Pain in right knee (principal); M25.562 Pain in left knee; G89.29 Other chronic pain; E11.40 Type 2 diabetes mellitus with diabetic neuropathy, unspecified; I10 Essential (primary) hypertension; J45.909 Unspecified asthma, uncomplicated; Z79.891 Long term (current) use of opiate analgesic

== ENCOUNTER → 2020-02-26 | Outpatient (CLI) | payer OTHER, MEDICAID | LOC: M.PC 09:27 | PROVIDERS: ATTEND Anesthesiology Pain Medicine | DX: M25.561 Pain in right knee (principal); M25.562 Pain in left knee; E11.40 Type 2 diabetes mellitus with diabetic neuropathy, unspecified; I10 Essential (primary) hypertension; J45.909 Unspecified asthma, uncomplicated; M19.90 Unspecified osteoarthritis, unspecified site; E03.9 Hypothyroidism, unspecified; Z79.891 Long term (current) use of opiate analgesic; Z79.899 Other long term (current) drug therapy; Z90.49 Acquired absence of other specified parts of digestive tract; Z90.710 Acquired absence of both cervix and uterus ==

== ENCOUNTER → 2020-04-22 | Outpatient (CLI) | payer OTHER, MEDICAID | LOC: M.PC 10:06 | PROVIDERS: ATTEND Anesthesiology Pain Medicine | DX: M54.5 Low back pain (principal); M25.561 Pain in right knee; M25.562 Pain in left knee; M25.551 Pain in right hip; M25.552 Pain in left hip; G62.9 Polyneuropathy, unspecified; E11.40 Type 2 diabetes mellitus with diabetic neuropathy, unspecified; I10 Essential (primary) hypertension; J45.909 Unspecified asthma, uncomplicated; G89.29 Other chronic pain; F98.9 Unspecified behavioral and emotional disorders with onset usually occurring in childhood and adolescence; M19.90 Unspecified osteoarthritis, unspecified site ==

== ENCOUNTER 2020-05-17 16:49 | Emergency (ER) | payer OTHER, MEDICAID ==
[~2020-05-17] VITALS: Ht 162.6 cm; Wt 158.8 kg
[2020-05-17 17:08] VITALS: BP 176/86
[2020-05-17] MEDS ORDERED: PENICILLIN V P500 MG PO (17:44)
[2020-05-17] MEDS ORDERED: PERIDEX 0.12%473 M1 SWISH&SPIT (17:45)
== END 2020-05-17 18:11 | disposition home or self-care (01) ==
LOC: M.ERS 16:49
DX: K04.7 Periapical abscess without sinus (principal); R22.0 Localized swelling, mass and lump, head; E11.9 Type 2 diabetes mellitus without complications; E03.9 Hypothyroidism, unspecified; I10 Essential (primary) hypertension; M13.862 Other specified arthritis, left knee; M13.861 Other specified arthritis, right knee; M47.9 Spondylosis, unspecified; M13.80 Other specified arthritis, unspecified site; Z88.8 Allergy status to other drugs, medicaments and biological substances; Z90.49 Acquired absence of other specified parts of digestive tract; Z90.710 Acquired absence of both cervix and uterus; S02.5XXA Fracture of tooth (traumatic), initial encounter for closed fracture; X58.XXXA Exposure to other specified factors, initial encounter; Y93.89 Activity, other specified; Y92.89 Other specified places as the place of occurrence of the external cause; Y99.8 Other external cause status

== ENCOUNTER → 2020-06-17 | Outpatient (CLI) | payer OTHER, MEDICAID ==
[~2020-06-17] MED LIST changes: +MOBIC7.5 M1 PO; +PENICILLIN V P500 MG PO; +PERIDEX 0.12%473 M1 SWISH&SPIT
== END ==
LOC: M.PC 09:29
PROVIDERS: ATTEND Anesthesiology Pain Medicine
DX: M54.5 Low back pain (principal); M25.551 Pain in right hip; M25.552 Pain in left hip; G62.9 Polyneuropathy, unspecified; E11.40 Type 2 diabetes mellitus with diabetic neuropathy, unspecified; I10 Essential (primary) hypertension; J45.909 Unspecified asthma, uncomplicated; K59.9 Functional intestinal disorder, unspecified; F98.9 Unspecified behavioral and emotional disorders with onset usually occurring in childhood and adolescence; M19.90 Unspecified osteoarthritis, unspecified site; Z88.8 Allergy status to other drugs, medicaments and biological substances; Z79.899 Other long term (current) drug therapy

== ENCOUNTER → 2020-08-12 | Outpatient (CLI) | payer OTHER, MEDICAID | LOC: M.PC 09:40 | PROVIDERS: ATTEND Anesthesiology Pain Medicine | DX: M25.561 Pain in right knee (principal); M25.562 Pain in left knee; E11.42 Type 2 diabetes mellitus with diabetic polyneuropathy; I10 Essential (primary) hypertension; J45.909 Unspecified asthma, uncomplicated; K63.9 Disease of intestine, unspecified; M47.819 Spondylosis without myelopathy or radiculopathy, site unspecified; M19.90 Unspecified osteoarthritis, unspecified site; Z86.16 Personal history of COVID-19 ==

== ENCOUNTER → 2020-10-07 | Outpatient (CLI) | payer OTHER, MEDICAID | LOC: M.PC 10:19 | PROVIDERS: ATTEND Anesthesiology Pain Medicine | DX: M25.561 Pain in right knee (principal); M25.562 Pain in left knee; I10 Essential (primary) hypertension; E11.42 Type 2 diabetes mellitus with diabetic polyneuropathy; J45.909 Unspecified asthma, uncomplicated; K63.89 Other specified diseases of intestine; M19.90 Unspecified osteoarthritis, unspecified site; Z86.16 Personal history of COVID-19; Z79.82 Long term (current) use of aspirin; Z79.891 Long term (current) use of opiate analgesic; Z79.899 Other long term (current) drug therapy; Z88.8 Allergy status to other drugs, medicaments and biological substances ==

== ENCOUNTER → 2020-12-02 | Outpatient (CLI) | payer OTHER, MEDICAID | LOC: M.PC 10:14 | PROVIDERS: ATTEND Anesthesiology Pain Medicine | DX: M25.551 Pain in right hip (principal); M17.0 Bilateral primary osteoarthritis of knee; M25.552 Pain in left hip; E11.40 Type 2 diabetes mellitus with diabetic neuropathy, unspecified; I10 Essential (primary) hypertension; J45.909 Unspecified asthma, uncomplicated; M19.90 Unspecified osteoarthritis, unspecified site; Z86.16 Personal history of COVID-19; K92.89 Other specified diseases of the digestive system; Z90.49 Acquired absence of other specified parts of digestive tract; Z90.710 Acquired absence of both cervix and uterus; Z88.8 Allergy status to other drugs, medicaments and biological substances; Z79.82 Long term (current) use of aspirin; Z79.899 Other long term (current) drug therapy ==

== ENCOUNTER → 2021-01-27 | Outpatient (CLI) | payer OTHER, MEDICAID | LOC: M.PC 10:10 | PROVIDERS: ATTEND Anesthesiology Pain Medicine | DX: M25.561 Pain in right knee (principal); M25.562 Pain in left knee; E11.40 Type 2 diabetes mellitus with diabetic neuropathy, unspecified; M25.559 Pain in unspecified hip; M54.50 Low back pain, unspecified; I10 Essential (primary) hypertension; J45.909 Unspecified asthma, uncomplicated; M19.90 Unspecified osteoarthritis, unspecified site; Z86.16 Personal history of COVID-19; Z90.49 Acquired absence of other specified parts of digestive tract; Z88.8 Allergy status to other drugs, medicaments and biological substances; Z90.710 Acquired absence of both cervix and uterus; Z79.82 Long term (current) use of aspirin; Z79.899 Other long term (current) drug therapy ==

== ENCOUNTER → 2021-03-24 | Outpatient (CLI) | payer OTHER, MEDICAID | LOC: M.PC 10:16 | PROVIDERS: ATTEND Anesthesiology Pain Medicine | DX: M25.561 Pain in right knee (principal); M25.562 Pain in left knee; E11.51 Type 2 diabetes mellitus with diabetic peripheral angiopathy without gangrene; I10 Essential (primary) hypertension; E03.9 Hypothyroidism, unspecified; J45.909 Unspecified asthma, uncomplicated; M19.90 Unspecified osteoarthritis, unspecified site; Z86.16 Personal history of COVID-19; Z90.49 Acquired absence of other specified parts of digestive tract; Z90.710 Acquired absence of both cervix and uterus; Z88.8 Allergy status to other drugs, medicaments and biological substances; Z79.82 Long term (current) use of aspirin; Z79.899 Other long term (current) drug therapy ==

== ENCOUNTER → 2021-05-02 | Outpatient (CLI) | payer OTHER, MEDICAID | LOC: M.RAD 12:44 | PROVIDERS: ATTEND Family Medicine | DX: Z12.31 Encounter for screening mammogram for malignant neoplasm of breast (principal); N63.10 Unspecified lump in the right breast, unspecified quadrant; N63.20 Unspecified lump in the left breast, unspecified quadrant ==

== ENCOUNTER → 2021-05-06 | Outpatient (CLI) | payer OTHER, MEDICAID | LOC: M.ULTRA 11:30 | PROVIDERS: ATTEND Family Medicine | DX: N63.11 Unspecified lump in the right breast, upper outer quadrant (principal) ==